=== PATIENT | female | born 1950 | race Caucasian/White ===

== ENCOUNTER 2024-11-03 18:21 | Outpatient (BNV) | payer MEDICARE, SELFPAY | END 2024-11-18 10:42 | PROVIDERS: Admitting Provider Psychiatry & Neurology Psychiatry; Visit Provider Internal Medicine Cardiovascular Disease | DX: I49.3 Ventricular premature depolarization (principal); I51.7 Cardiomegaly | CPT/HCPCS: 93010 ==

== ENCOUNTER 2024-11-03 18:21 | Inpatient (IN) | payer MEDICARE, SELFPAY ==
--- NOTE | ~2024-11-03 | US_ITS ---
EXAMINATION: US KIDNEY BILATERAL HISTORY: hyperkalemia, AZEEM TECHNIQUE: Real-time grayscale ultrasound imaging of the kidneys was performed and images were reviewed. COMPARISON: There are no prior studies for comparison. FINDINGS: Right kidney: The right kidney measures 7.2 x 3.5 x 3.8 cm. The right kidney demonstrates increased echotexture and poor corticomedullary differentiation. There are no masses. There is no hydronephrosis or renal calculi. Left Kidney: The left kidney measures 6.3 x 2.9 x 3.4 cm. The left kidney demonstrates increased echotexture and poor corticomedullary differentiation There are no masses. There is no hydronephrosis or renal calculi. There is a transplant kidney in the left lower quadrant measuring 11.4 x 4.0 x 5.9 cm. Cortical thickness and echotexture are normal. There is no mass, hydronephrosis, or calculi. US/US renal BI IMPRESSION: Atrophic [place] kidneys demonstrating increased echotexture and poor corticomedullary differentiation. Unremarkable appearing transplant kidney in the left lower quadrant. Electronically signed by: Beto Morris MD 11/18/2024 01:29 PM EDT
--- OUTSIDE RECORDS SUMMARY | 2024-11-03 18:31 | XMS_ITS | Clinical Summary ---
Author Organization [facility] Address [address] [place] [address] [place] [id number] Phone Care Team Providers Care Legal Services Manager Name Role Phone Jessica Rowell MD Primary Care Provider + Encounters Date Type Department Care Team Description 09/08/2024 Telephone [facility] [address] [place] [address] Jessica Bose, Establish Care from Last 3 Months Social History Tobacco Use Types Packs/Day Years Used Date Smoking Tobacco: Never Assessed Education Answer Date Recorded Are you interested in more education? Not on romulo e 06/08/2024 Are you concerned about learning? Not on file 06/08/2024 No 06/08/2024 No 06/08/2024 Digital Access Answer Date Recorded No 06/08/2024 No 06/08/2024 Reliable internet access at home? Not on file 06/08/2024 Device with a working camera? Not on file Sex and Gender Information Value Date Recorded Sex Assigned at Female 06/08/2024 12:03 PM EST Gender Identity Female 06/08/2024 12:03 PM EST Sexual Orientation Choose not to disclose 2023 12:03 PM EST Plan of Treatment Health Maintenance Due Date Last Done Comments Adult Td,Tdap Booster 1950 LIPID PANEL 1948 DEPRESSION SCREENING 1960 SMOKING Hx and SMOKELESS TOB ACCO SCREENING 1961 HEPATITIS C SCREENING 1966 PNEUMOCOCCAL VACCINES (50+ y ears) (1 of 1 - PCV) 1998 ZOSTER VACCINES (1 of 2) 1998 OSTEOPOROSIS SCREENING INITI AL (ONE-TIME) 2013 RSV VACCINE (1 - 1-dose 75+ series) 2023 COVID-19 VACCINE ( - 2023-2 5 season) 2024 HEPATITIS A VACCINES Aged Out No long er eligible based on patient's age to complete this topic HIB VACCINES Aged Out No longer eligi ble based on patient's age to complete this topic MENINGOCOCCAL VACCINES (ACWY) Aged Out No longer eligible based on patient's age to complete this topic Medical Devices Not on file Procedures Procedure Name Priority Date/Time Associated Diagnosis Comments NM ELECTROCARDIOGRAM, COMPLETE 08/30/2024 8:21 AM EST from Last 3 Months Results * NM ELECTROCARDIOGRAM, COMPLETE (08/30/2024 8:21 AM EST) 08/30/2024 8:21 AM EST Narrative [employer] [facility] - 08/30/2024 8:21 AM EST ? [facility] ?[address] ? [place] [address] ?Electrocardiograph Report ?Signed ? Patient: Candi Salgado ?? MR# [id number] ? : 1950 ?Acct:[id number] ? Age/Sex: 74 / F ?ADM Date: 08/29/24 ? Loc: ED ? Attending Dr: ? Ordering Physician: Jones Lee MD ?? Date of Service: 08/29/24 ?? Procedure(s): EKG 12 lead ?? Accession Number(s): [id number] ? cc: Jessica Rowell MD; Jones Lee MD~ ? Test Reason : WEAKNESS ?? Blood Pressure : ?? */* ?? mmHG ?? Vent. Rate : ??89 BPM ? Atrial Rate : ??89 BPM ? P-R Int : 174 ms ?QRS Dur : 104 ms ?QT Int : 382 ms ? P-R-T Axes : ??48 -31 ??46 degrees ? QTc Int : 464 ms ? POOR DATA QUALITY, INTERPRETATION MAY BE ADVERSELY AFFECTED ?? NORMAL SINUS RHYTHM ?? POSSIBLE LEFT ATRIAL ENLARGEMENT ?? BORDERLINE ECG ?? ABNORMAL ECG ?? WHEN COMPARED WITH ECG OF 19-SEP-2023 12:10, ?? NO SIGNIFICANT CHANGE WAS FOUND ?? Confirmed by Isiah MARIE SCOTT ([id number]) on 08/30/2024 8:21:25 AM ? Referred By: ?Confirmed By: MATT MARIE M.D. ?? Acquiring Tech: ??DL ? Dictated By: ? Matt Marie MD ? Signed By: ? <Electronically signed by Matt Marie MD in OV> ? 08/30/24 0821 ?? Procedure Note Matt Marie MD - 08/30/2024 [facility] [address] [place] [address] Electrocardiograph Report Signed Patient: Candi Salgado MR# [id number] : 8Acct:[id number] Age/Sex: 74 / F ADMDate: 08/29/24 Loc: ED Attending Dr: Ordering Physician: Jones Lee MD Date of Service: 08/29/24 Procedure(s): EKG 12 lead Accession Number(s): [id number] cc: Jessica Rowell MD; Jones Lee MD~ Test Reason : WEAKNESS Blood Pressure : */* mmHG Vent. Rate : 89 BPM Atrial Rate : 89 BPM P-R Int : 174 ms QRS Dur : 104 ms QT Int : 382 ms P-R-T Axes : 48 -31 46 degrees QTc Int : 464 ms POOR DATA QUALITY, INTERPRETATION MAY BE ADVERSELY AFFECTED NORMAL SINUS RHYTHM POSSIBLE LEFT ATRIAL ENLARGEMENT BORDERLINE ECG ABNORMAL ECG WHEN COMPARED WITH ECG OF 19-SEP-2023 12:10, NO SIGNIFICANT CHANGE WAS FOUND Confirmed by Isiah MARIE, MATT ([id number]) on 08/30/2024 8:21:25 AM Referred By: Confirmed By: MATT MARIE M.D. Acquiring Tech: DL Dictated By: Matt Marie MD Signed By: <Electronically signed by Matt Marie MD in OV> 08/30/24 0821 Jones Lee MD [facility] [employer] [facility] from Last 3 Months Denisetecarly, Candi E Personal/Famil y Self [address] [place] [phone] Hottelet, Candi E Personal/Famil y Self [address] [place] [phone] Hottelet, Candi E Personal/Famil y Self [address] [place] [phone] Hottelet, Candi E Personal/Famil y Self [address] [place] [phone] Hottelet, Candi E Personal/Famil y Self [address] [place] [phone] Hottelet, Candi E Personal/Famil y Self [address] [place] [phone] Care Teams Legal Services Manager Relationship Specialty Start Date End Date Jessica Rowell MD [address] [place] [address] [email or web address] PCP - General Internal Medicine 09/08/24 Additional Source Comments The information contained in this document represents components of the legal health record. It is not the complete legal health record.[facility]
--- OUTSIDE RECORDS SUMMARY | 2024-11-03 18:31 | XMS_ITS | Clinical Summary ---
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 Social History Tobacco Use Types Packs/Day Years Used Date Smoking Tobacco: Never Assessed Comments Unknown Sex and Gender Information Value Date Recorded Sex Assigned at Female 01/06/2024 10:23 AM EDT Legal Sex Female 12:24 AM EDT Gender Identity Female 01/06/2024 10:23 AM EDT Sexual Orientation Straight 01/06/2024 10 :23 AM EDT Plan of Treatment Health Maintenance Due Date Last Done Comments HIV Screening 1950 MMR Vaccines (1 of 1 - Stand aurora series) 1949 DTaP/Tdap/Td Vaccines (1 - Tdap) 1955 Varicella Vaccines (1 of 2 - 13+ 2-dose series) 1961 Hepatitis C Screening 1966 COVID-19 Vaccine ( - 2023-2 5 season) 2024 Influenza Vaccine (Season Ended) 2025 HIB Vaccines Aged Out No longer eligi ble based on patient's age to complete this topic HPV Vaccines Aged Out No longer eligi ble based on patient's age to complete this topic Hepatitis A Vaccines Aged Out No long er eligible based on patient's age to complete this topic Hepatitis B Vaccines Aged Out No long er eligible based on patient's age to complete this topic IPV Vaccines Aged Out No longer eligi ble based on patient's age to complete this topic Meningococcal B Vaccine Aged Out No l onger eligible based on patient's age to complete this topic Meningococcal Vaccine Aged Out No lonnie elkin eligible based on patient's age to complete this topic Rotavirus Vaccines Aged Out No longer eligible based on patient's age to complete this topic Insurance AETNA DENTAL MEDICARE [facility] AETNA DENTAL MEDICARE [facility] Care Teams Race Relations Professor Relationship Specialty Start Date End Date Jessica Rowell [address] [place] [address] PCP - General Internal Medicine 12/06/23 Jessica Rowell [address] [place] [address] PCP - Clinical PCP 02/11/19
--- OUTSIDE RECORDS SUMMARY | 2024-11-03 18:31 | XMS_ITS | Clinical Summary ---
Author Organization [facility] Address [address] [place] [address] Phone Care Team Providers Care Head Chef Name Role Phone Unavailable Unavailable Conditions or Problems No information available. Medications No information available. Medications Administered No information available. Allergies, Adverse Reactions, Alerts No information available. Results No information available. Plan of Care No information available. Procedures No information available. Vital Signs No information available. Immunizations No information available. Advance Directives No information available.
--- OUTSIDE RECORDS SUMMARY | 2024-11-03 18:31 | XMS_ITS | Encounter Summary ---
Author Organization [facility] Address [address] [place] [address] Phone Care Team Providers Care Auto Porter Name Role Phone Jessica Rowell Primary Care Provider [phone] Jessica Rowell Unavailable [phone] Encounter Details Date Type Department Care Team (Latest Contact Info) Description 12/19/2023 Abstract [facility] Conversion ProviderYi MD [address] [place] [address] Social History Tobacco Use Types Packs/Day Years Used Date Smoking Tobacco: Never Assessed Comments Unknown Sex and Gender Information Value Date Recorded Sex Assigned at Female 01/06/2024 10:23 AM EDT Legal Sex Female 12:24 AM EDT Gender Identity Female 01/06/2024 10:23 AM EDT Sexual Orientation Straight 01/06/2024 10 :23 AM EDT documented as of this encounter Plan of Treatment Not on file documented as of this encounter Visit Diagnoses Not on filedocumented in this encounter Care Teams Auto Porter Relationship Specialty Start Date End Date Jessica Rowell [address] [place] [address] PCP - General Internal Medicine 12/06/23 Jessica Rowell [address] [place] [address] PCP - Clinical PCP 02/11/19 documented as of this encounter
[2024-11-03 20:00] VITALS: BP 128/68; PULSE 86; RESP 17; TEMP 36.1; O2SAT 96
[2024-11-03] MEDS: OLANZapine 10 MG TABLET PO (23:00)
[2024-11-03] MEDS: Tacrolimus 1 MG CAPSULE PO (23:00)
[2024-11-03] MEDS: Acetaminophen 325 MG TABLET 975 MG PO (23:00)
[2024-11-03] MEDS: lamoTRIgine 100 MG TABLET 200 MG PO (23:01)
[2024-11-04] MEDS: Levothyroxine Sodium 50 MCG TABLET PO (05:57)
[2024-11-04 06:19] VITALS: BMI 22.9
[2024-11-04 08:22] LABS: Estimated Average Glucose 105 mg/dL; Hemoglobin A1C 127.7477 umol/L; Hemoglobin A1c % 5.3 % (<6.0); Total Hemoglobin (HGBA1C) 3747.1247 umol/L
[2024-11-04 08:24] VITALS: BP 143/66; PULSE 77; RESP 16; TEMP 36.9; O2SAT 98
[2024-11-04] MEDS: Acetaminophen 325 MG TABLET 975 MG PO ×2 (08:26→20:43)
[2024-11-04] MEDS: Tacrolimus 1 MG CAPSULE 2 MG PO (08:26)
[2024-11-04] MEDS: lamoTRIgine 100 MG TABLET 200 MG PO ×2 (08:28→20:43)
[2024-11-04 08:38] LABS: Cholesterol 199 mg/dL (<200); HDL Cholesterol 114 mg/dL (>40); LDL Cholesterol Calculated 67 mg/dL (<100); Triglycerides 91 mg/dL (<150)
[2024-11-04 08:50] LABS: TSH reflex Free T4 0.48 uIU/mL (0.32-4.0)
[2024-11-04 09:02] LABS: Alanine Aminotransferase 24 U/L (0-31); Albumin Level 4.1 g/dL (3.5-5.0); Alkaline Phosphatase 70 U/L (39-117); Anion Gap 16 (12-20); Aspartate Amino Transferase 32 U/L (5-31); Bilirubin Total 0.6 mg/dL (0.0-1.0); Blood Urea Nitrogen 56 mg/dL (9-16); Calcium 10.3 mg/dL (8.4-10.2); Carbon Dioxide 26 mmol/L (22-29); Chloride 101 mmol/L (96-108); Creatinine Clr Calc Pharmacy 17.9; Estimated Glomerular Filt Rate 19; Glucose Random 105 mg/dL (60-115); Potassium 4.5 mmol/L (3.3-5.1); Sodium 138 mmol/L (135-145)
[2024-11-04 09:17] VITALS: BMI 22.9
--- NOTE | 2024-11-04 09:28 | HO.PSYADMNOT ---
HPI Date of Service: 11/04/24 Chief Complaint: Bipolar 1 disorder, with psychotic features Sources of Information: patient interviewed, chart reviewed and crisis/core team assessment reviewed HPI Subjective Notes: [place] Warning Healthcare Proxy: Yes Narrative: Ms. Salgado is a 74 year-old woman with hx of schizoaffective disorder, bipolar type who self presented to [facility] due to a fall. She was awaiting STR recommended by PT when she presented as increasingly more paranoid, calling 911 several times reporting she was being tortured and observed self-dialoguing. Pertinent labs in the ED include cbc without leukocytosis. CMP with no electrolyte abnormalities, BUN elevated 38, Cr 2.16 ( post kidney/liver transplant with baseline Cr 2.6 on tacrolimus), AST 36, ALT 20. She has medical hx of ulcerative colitis, graves disease. She apparently did have acute urinary retention on 11/01/2024. Her tacrolimus level was subtherapeutic at 2.8, range goal between 4-6ng/ml. It is documented that patient has been subtherapeutic for long time and her OP nephrology aware of this. Head CT showed atrophy and microvascular changes. On the unit, pt presents with constricted affect. She is calm, poverty of thought. She reports she is not sure why she is here. When asked about fear of someone attempting to harm her while at the other hospital, pt declines feeling fearful or calling 911. 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 She denies SI/HI. She currently denies hearing voices or seeing things other's can't see. She reports she was under the impression that being here had more to do with physical therapy to help with ambulation and prevent falls. She reports she has been working with psychiatrist, Dr. Damion Lynn for a long time and has a new therapist. She reports taking medications as prescribed. Past Psychiatric History: Inpt: multiple in the past, most recently per records, 2020 in [place], [place] due to suicidal ideation. Other admission at [facility]. OP:Dr. Damion Lynn MD [phone] Past medication trials: lithium (end stage renal disease), lamictal, olanzapine Hx of suicide attempts: when pt was 16, attempted to drown self (per records), pt reports had attempts but can't remember what she did or when. Medical Evaluation Reviewed: Yes [facility] Medical History (Updated 11/05/24 @ 10:23 by Roxanne Whitt NP) Bipolar 1 disorder HTN (hypertension) Hypothyroidism Ulcerative colitis Surgical History (Updated 11/04/24 @ 13:32 by TERRA Licona) S/P kidney transplant S/P liver transplant Family History: pt states my sisters Social History: Pt twice. She had 3 children with second who in 2021. Her son after being hit by truck at the age of 8 in 1995. She has 2 sons, one in [place] and another in [place]. Son in [place] is her HCP and apparently they did not have contact for a decade until about a year ago when she contacted him and appointed him as HCP. 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 Substance History: denies Trauma History: of son Diagnostics Vital Signs (24Hr): Vital Signs - 24 hr 11/03/24 20:00 11/04/24 08:24 Temperature 97 F 98.4 F Pulse Rate 86 77 Respiratory Rate 17 16 Blood Pressure 128/68 143/66 H Pulse Oximetry 96 98 Oxygen Delivery Method Room Air Room Air BMI result Body Mass Index 22.9 Labs 11/04/24 07:40 Labs: Laboratory Results - last 48 hr 11/04/24 07:40 Sodium 138 Potassium 4.5 Chloride 101 Carbon Dioxide 26 Anion Gap 16 BUN 56 H Creatinine 2.50 H Estim Creat Clear Calc 17.9 Estimated GFR 19 Random Glucose 105 Estimat Average Glucose 105 Hemoglobin A1c % 5.3 Calcium 10.3 H Total Bilirubin 0.6 AST 32 H ALT 24 Alkaline Phosphatase 70 Total Protein 8.0 Albumin 4.1 Triglycerides 91 Cholesterol 199 LDL Cholesterol, Calc 67 HDL Cholesterol 114 TSH 0.48 Meds/Allergies Meds Home Medications ?Medication ?Instructions ?Recorded ?Confirmed ?Type Tylenol 1,000 mg PO TID 11/03/24 11/03/24 History albuterol 2.5 mg inhalation QID PRN SOB 11/03/24 11/03/24 History heparin, porcine (PF) 5,000 unit subcut TID 11/03/24 11/03/24 History lamotrigine 200 mg PO BID 11/03/24 11/03/24 History levothyroxine 50 mcg PO DAILY 11/03/24 11/03/24 History olanzapine 2.5 mg PO TID PRN Anxiety 11/03/24 11/03/24 History olanzapine 10 mg PO BEDTIME 11/03/24 11/03/24 History tacrolimus 1 mg PO BEDTIME 11/03/24 11/03/24 History tacrolimus 2 mg PO DAILY 11/03/24 11/03/24 History Allergies Allergies Allergy/AdvReac Type Severity Reaction Status Date / Time aspirin Allergy Unknown Verified 11/03/24 19:49 lithium AdvReac Severe kidney Verified 11/05/24 10:08 disease NSAIDS (Non-Steroidal AdvReac Severe end stage Verified 11/05/24 10:08 Anti-Inflamma renal disease Mental Status Exam Mental Status Exam Narrative: Appearance: thin, pale, sitting in wheelchair, constricted affect, fair hygiene, in NAD Behavior: superficially cooperative Psychomotor: retardation noted, no resting tremors, Speech: mostly clear, some delayed in response but not significant, spontaneous TP: mostly linear, some poverty of thought TC:wanting to fiction writer and publish her book and work on physical therapy Mood: okay Affect: constricted SI: denies HI: denies VH/AH: denies but may be internally preoccupied Delusions: only delusional report during our interview was 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 memory/cog: alert, oriented to month, year, not so much situation. pending MOCA and ACL. Assessment & Plan Assessment & Plan (1) Schizoaffective disorder, bipolar type: Status: Acute Code(s): F25.0 - Schizoaffective disorder, bipolar type Plan Ms. Salgado is a 74 year-old woman with hx of schizoaffective disorder, bipolar type who initially self presented to [facility] due to frequent falls, she was awaiting to step down to [facility], but noted to be more paranoid, calling 911 several times reporting she was being tortured, and observed self dialoguing. On the unit, pt presents as calm, cooperative, poverty of thought. 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 She has significant gait abnormalities including freeze gait, retropulsion, poor coordination. No noted resting tremors, but does present with constricted affect. We discussed risks, benefits and alternative treatment options. Will continue olanzapine, will obtain collateral information from her OP psychiatrist. PT ordered. Pending OT assessments for cognitive/memory. Concern in terms of her ability to care for herself given physical and cognitive impairments. PLAN 1. Admit to S1, Sect 12b, 5 minutes checks 2. continue olanzapine and lamictal for mood 3. obtain collateral information- from OP psychiatrist and son. Also home health aid [phone] 4. Aftercare planning. Patient educated on: diagnosis and medication risk/benefits Informed Consent: does not understand Reason for continued inpatient stay Substantial Risk for: inability to function Statement Statement: I have reviewed the history and physical and performed a pertinent examination on my patient. No changes have occurred unless specified. If the History and Physical was not performed prior to admission, the Hospitalist's service will be consulted for completing the admission physical. Time Spent With Patient Time: Total time managing care of this patient today ____ minutes.
--- NOTE | 2024-11-04 09:34 | P.CONHOSP_ITS ---
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 Pt initially presented to [facility] after mechanical fall at home. Medical workup unremarkable, however became increasingly paranoid during hospital stay, calling 911 from her hospital phone multiple times believing that she has been ?locked up? and was referring to herself in the 3rd person. Pt was also noted to be noncompliant with tacrolimus at home up to 2-3 times per week. Pt was thus placed on a section 12 due to inability care for self, grossly impaired insight/judgment, and paranoid ideation/delusional thinking. Medical consult for admission H&P. ?Pt seen and evaluated on the unit where she appears calm and cooperative, sitting in the wheelchair. 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 Pt overall has no acute medical complaints and states she is feels ?fine?. Pt is noted to have an enlarged fistula in right upper extremity. Reports was placed in 2010 but never used as she underwent kidney transplant instead of dialysis. States she does not like to ?press on it? but denies any significant pain or discomfort. Denies fever, chills, nausea, vomiting, abdominal pain. No chest pain/pressure, palpitations. Denies shortness or breath or difficulty breathing. Labs reviewed, significant for BUN 56 and creatinine 2.50, in line with baseline of 2.0-2.50. No significant electrolyte abnormalities. A1c 5.3. TSH WNL. Lipid panel WNL. Review of Systems 2 Review of Systems: Pt has no acute medical complaints at this time. No [facility] Medical History (Updated 11/04/24 @ 13:34 by TERRA Licona) Bipolar 1 disorder HTN (hypertension) Hypothyroidism Ulcerative colitis Surgical History (Updated 11/04/24 @ 13:32 by TERRA Licona) S/P kidney transplant S/P liver transplant Social History Household Members: None Housing: House Do you presently have visiting nurse or other home services: Yes (has home services once a week) Patient Tobacco Use Status: Former Tobacco user Use of substances other than those prescribed or required for medical reasons: Yes Currently Displaying Signs/Symptoms of Drug Intoxication Withdrawal: No Advance Directives: No Advance Directives Information Provided: No Do you have thoughts of harming others: None Do you have a plan to hurt others: No Plan Recently lost weight without trying: No Patient : No : No Poor oral hygiene: No Meds Allergies Allergy/AdvReac Type Severity Reaction Status Date / Time aspirin Allergy Unknown Verified 11/03/24 19:49 lithium Allergy Unknown Verified 11/03/24 19:49 NSAIDS (Non-Steroidal Allergy Unknown Verified 11/03/24 19:49 Anti-Inflamma Active Medications: Current Medications Acetaminophen (Acetaminophen 325 Mg Tablet) 975 mg PO TID [facility] Last Admin: 11/04/24 08:26 Dose: 975 mg Al Hydroxide/Mg Hydroxide (Magnesium Hydrox/Alum Hydrox 30 Ml Oral.Susp) 30 ml PO Q6H PRN PRN Reason: Heartburn/Nausea Albuterol Sulfate (Albuterol Sulfate (0.083%) 2.5 Mg/3 Ml Vial.Neb) 2.5 mg INHALE QID PRN PRN Reason: Shortness of Breath Lamotrigine (Lamotrigine 100 Mg Tablet) 200 mg PO BID [facility] Last Admin: 11/04/24 08:28 Dose: 200 mg Levothyroxine Sodium (Levothyroxine Sodium 50 Mcg Tablet) 50 mcg PO DAILY@0600 [facility] Last Admin: 11/04/24 05:57 Dose: 50 mcg Magnesium Hydroxide (Milk Of Magnesia 30 Ml Oral.Susp) 30 ml PO DAILY PRN PRN Reason: Constipation Nicotine Polacrilex (Nicotine Polacrilex 2 Mg Gum) 4 mg BUCCAL Q2H PRN PRN Reason: Nicotine Cravings Olanzapine (Olanzapine 2.5 Mg Tablet) 2.5 mg PO TID PRN PRN Reason: agitation Olanzapine (Olanzapine 10 Mg Tablet) 10 mg PO BEDTIME [facility] Last Admin: 11/03/24 23:00 Dose: 10 mg Tacrolimus (Tacrolimus 1 Mg Capsule) 2 mg PO DAILY [facility] Last Admin: 11/04/24 08:26 Dose: 2 mg Tacrolimus (Tacrolimus 1 Mg Capsule) 1 mg PO BEDTIME [facility] Last Admin: 11/03/24 23:00 Dose: 1 mg Trazodone HCl (Trazodone Hcl 25 Mg Halftab) 25 mg PO BEDTIME MRX1 PRN PRN Reason: Insomnia Home Medications ?Medication ?Instructions ?Recorded ?Confirmed ?Last Taken ?Type Tylenol 1,000 mg PO TID 11/03/24 11/03/24 Unknown History albuterol 2.5 mg inhalation QID PRN SOB 11/03/24 11/03/24 Unknown History heparin, porcine (PF) 5,000 unit subcut TID 11/03/24 11/03/24 Unknown History lamotrigine 200 mg PO BID 11/03/24 11/03/24 Unknown History levothyroxine 50 mcg PO DAILY 11/03/24 11/03/24 Unknown History olanzapine 2.5 mg PO TID PRN Anxiety 11/03/24 11/03/24 Unknown History olanzapine 10 mg PO BEDTIME 11/03/24 11/03/24 Unknown History tacrolimus 1 mg PO BEDTIME 11/03/24 11/03/24 Unknown History tacrolimus 2 mg PO DAILY 11/03/24 11/03/24 Unknown History Physical Exam 2 Vital Signs and Narrative: Vital Signs: Last Vital Signs Temp 98.4 F 11/04/24 08:24 Pulse 77 11/04/24 08:24 Resp 16 11/04/24 08:24 BP 143/66 H 11/04/24 08:24 Pulse Ox 98 11/04/24 08:24 O2 Del Method Room Air 11/04/24 08:24 BMI result Body Mass Index 22.9 General: AOx3, no acute distress Resp: CTA bilaterally CVS: S1, S2, RRR, +murmur GI: +BS, NT, no distention Skin: Warm, dry Neuro: Cranial nerves II-XII grossly intact bilaterally. Motor grossly intact bilaterally Extremities: No edema. Right upper extremity with enlarged fistula, as pictured below. 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 Medical consult for admission H&P. Mood disorder Plan as per Psychiatry AV fistula of right upper extremity Pt reports fistula placed in 2010, never used Appears enlarged likely secondary to thrombosis from lack of use Pt asymptomatic: Denies any significant pain or discomfort Contacted vascular surgery who did not think any acute intervention necessary at this time Should follow up outpatient with vascular surgery for elective procedure to remove thrombosis End-stage renal disease Secondary to lithium toxicity S/p kidney transplant in 2010 Creatinine 2.50, in line with baseline of 2.0-2.5 Continue tacrolimus Follow up outpatient with [facility] End-stage liver disease Secondary to primary sclerosing cholangitis S/p liver transplant in 2010 Continue tacrolimus Follow up outpatient with [facility] Asthma Not in acute exacerbation Continue home rescue inhaler Hypothyroidism Continue levothyroxine Thank you for allowing us to participate in the care of this patient. Signing off at this time. Please re-consult if any acute complaints or issues arise.
[2024-11-04] MEDS: OLANZapine 2.5 MG TABLET PO (13:03)
--- NOTE | 2024-11-04 15:40 | PC.ADMIT ---
Pt arrived on the unit at 1855 via ambulance from [facility], 12B. Pt originally presented to the hospital because she had a fall at home. She then had a manic episode while in ED, due to Bipolar 1 d/o, and in addition became agitated and paranoid which was the precipitating factor to qualifying for this psychiatric IPLOC. Pt currently calm and cooperative. Pt with unsteady gait and given a wheelchair for safety. She has a colostomy which she is dependent for care with. Surrounding tissue is warm and dry, no infection noted or reported. Pt with a fistula on right arm from dialysis, pre-kidney transplant. Fistula is very large and hospitalist consult placed for assessment.
[2024-11-04 20:00] VITALS: BP 121/80; PULSE 100; RESP 18; TEMP 36.3; O2SAT 94
[2024-11-04] MEDS: Tacrolimus 1 MG CAPSULE PO (20:42)
[2024-11-04] MEDS: OLANZapine 10 MG TABLET PO (20:43)
[2024-11-04] MEDS: traZODone HCL 25 MG HALFTAB PO (20:44)
[2024-11-05] MEDS: Levothyroxine Sodium 50 MCG TABLET PO (06:10)
[2024-11-05 08:00] VITALS: BP 113/71; PULSE 106; RESP 18; TEMP 36.1; O2SAT 94
[2024-11-05] MEDS: Tacrolimus 1 MG CAPSULE 2 MG PO (09:11)
[2024-11-05] MEDS: Acetaminophen 325 MG TABLET 975 MG PO ×2 (09:12→19:37)
[2024-11-05] MEDS: lamoTRIgine 100 MG TABLET 200 MG PO ×2 (09:13→19:38)
--- NOTE | 2024-11-05 17:24 | P.PNPSI_ITS ---
Subjective Subjective Date of Service: 11/05/24 Reason For Visit: Bipolar 1 disorder, with psychotic features Subjective Notes: Conditional Voluntary Interim History: Pt slept through the night. She does have constricted affect, eyes slightly protruding, do not notice decreased blinking. There is a slight action tremors no overt cogwheel on arms. She reports doing well. Poverty of thought. She was not able to complete MOCA nor ACL, as she reported too difficult. No overt delusional content noted. Review of Systems Review of Systems Pt has no acute medical complaints at this time. 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 memory/cog: alert, oriented to month, year, not so much situation. pending MOCA and ACL. Diagnostics Vital Signs (24Hr): Vital Signs - 24 hr 11/04/24 20:00 11/05/24 08:00 Temperature 97.4 F 97 F Pulse Rate 100 106 H Respiratory Rate 18 18 Blood Pressure 121/80 113/71 Pulse Oximetry 94 94 Oxygen Delivery Method Room Air Room Air BMI result Body Mass Index 22.9 Labs 11/04/24 07:40 Labs: Laboratory Results - last 48 hr 11/04/24 07:40 Sodium 138 Potassium 4.5 Chloride 101 Carbon Dioxide 26 Anion Gap 16 BUN 56 H Creatinine 2.50 H Estim Creat Clear Calc 17.9 Estimated GFR 19 Random Glucose 105 Estimat Average Glucose 105 Hemoglobin A1c % 5.3 Calcium 10.3 H Total Bilirubin 0.6 AST 32 H ALT 24 Alkaline Phosphatase 70 Total Protein 8.0 Albumin 4.1 Triglycerides 91 Cholesterol 199 LDL Cholesterol, Calc 67 HDL Cholesterol 114 TSH 0.48 Medications Medications Current Medications Acetaminophen (Acetaminophen 325 Mg Tablet) 975 mg PO TID [facility] Last Admin: 11/05/24 15:37 Dose: Not Given Al Hydroxide/Mg Hydroxide (Magnesium Hydrox/Alum Hydrox 30 Ml Oral.Susp) 30 ml PO Q6H PRN PRN Reason: Heartburn/Nausea Albuterol Sulfate (Albuterol Sulfate (0.083%) 2.5 Mg/3 Ml Vial.Neb) 2.5 mg INHALE QID PRN PRN Reason: Shortness of Breath Lamotrigine (Lamotrigine 100 Mg Tablet) 200 mg PO BID [facility] Last Admin: 11/05/24 09:13 Dose: 200 mg Levothyroxine Sodium (Levothyroxine Sodium 50 Mcg Tablet) 50 mcg PO DAILY@0600 [facility] Last Admin: 11/05/24 06:10 Dose: 50 mcg Magnesium Hydroxide (Milk Of Magnesia 30 Ml Oral.Susp) 30 ml PO DAILY PRN PRN Reason: Constipation Nicotine Polacrilex (Nicotine Polacrilex 2 Mg Gum) 4 mg BUCCAL Q2H PRN PRN Reason: Nicotine Cravings Olanzapine (Olanzapine 2.5 Mg Tablet) 2.5 mg PO TID PRN PRN Reason: agitation Last Admin: 11/04/24 13:03 Dose: 2.5 mg Olanzapine (Olanzapine 10 Mg Tablet) 10 mg PO BEDTIME [facility] Last Admin: 11/04/24 20:43 Dose: 10 mg Tacrolimus (Tacrolimus 1 Mg Capsule) 2 mg PO DAILY [facility] Last Admin: 11/05/24 09:11 Dose: 2 mg Tacrolimus (Tacrolimus 1 Mg Capsule) 1 mg PO BEDTIME [facility] Last Admin: 11/04/24 20:42 Dose: 1 mg Trazodone HCl (Trazodone Hcl 25 Mg Halftab) 25 mg PO BEDTIME MRX1 PRN PRN Reason: Insomnia Last Admin: 11/04/24 20:44 Dose: 25 mg Allergies Allergies Allergy/AdvReac Type Severity Reaction Status Date / Time aspirin Allergy Unknown Verified 11/03/24 19:49 lithium AdvReac Severe kidney Verified 11/05/24 10:08 disease NSAIDS (Non-Steroidal AdvReac 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 Salgado is a 74 year-old woman with hx of schizoaffective disorder, bipolar type who initially self presented to [facility] due to frequent falls, she was awaiting to step down to [facility], but noted to be more paranoid, calling 911 several times reporting she was being tortured, and observed self dialoguing. On the unit, pt presents as calm, cooperative, poverty of thought. 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 She has significant gait abnormalities including freeze gait, retropulsion, poor coordination. No noted resting tremors, but does present with constricted affect. We discussed risks, benefits and alternative treatment options. Will continue olanzapine, will obtain collateral information from her OP psychiatrist. PT ordered. Pending OT assessments for cognitive/memory. Concern in terms of her ability to care for herself given physical and cognitive impairments. PLAN 11/05 continue tx. Reason for continued inpatient stay Substantial Risk for: inability to function Time Spent With Patient Time: Total time managing care of this patient today ____ minutes.
[2024-11-05] MEDS: Tacrolimus 1 MG CAPSULE PO (19:38)
[2024-11-05] MEDS: OLANZapine 10 MG TABLET PO (19:39)
[2024-11-05 19:41] VITALS: BP 131/60; PULSE 100; RESP 16; TEMP 37.2; O2SAT 95
[2024-11-06] MEDS: Levothyroxine Sodium 50 MCG TABLET PO (05:16)
--- NOTE | 2024-11-06 06:02 | PC.NURSE ---
Colostomy bag displaced, new bag installed, stoma red/pink, moist, shiny, and asymptomatic of infection. Patient tolerated the procedure well.
[2024-11-06 08:00] VITALS: BP 138/60; PULSE 89; RESP 18; TEMP 36.4; O2SAT 95
[2024-11-06] MEDS: Acetaminophen 325 MG TABLET 975 MG PO ×3 (08:26→19:53)
[2024-11-06] MEDS: lamoTRIgine 100 MG TABLET 200 MG PO ×2 (08:26→19:52)
[2024-11-06] MEDS: Tacrolimus 1 MG CAPSULE 2 MG PO (08:26)
--- NOTE | 2024-11-06 18:29 | HO.PSYCHPN ---
Subjective Subjective Date of Service: 11/06/24 Reason For Visit: Bipolar 1 disorder, with psychotic features Subjective Notes: Conditional Voluntary Interim History: Pt slept through the night. She denies any concerns, no overt delusional content noted or reported. She denies SI/HI. She continues to be wheelchair bound and assistance to transfer with one assist. She is taking medications as prescribed. No behavioral concerns. Review of Systems Review of Systems Pt has no acute medical complaints at this time. 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 memory/cog: alert, oriented to month, year, not so much situation. pending MOCA and ACL. Diagnostics Vital Signs (24Hr): Vital Signs - 24 hr 11/05/24 19:41 11/06/24 08:00 Temperature 99 F 97.5 F Pulse Rate 100 89 Respiratory Rate 16 18 Blood Pressure 131/60 138/60 Pulse Oximetry 95 95 Oxygen Delivery Method Room Air Room Air BMI result Body Mass Index 22.9 Labs 11/04/24 07:40 Medications Medications Current Medications Acetaminophen (Acetaminophen 325 Mg Tablet) 975 mg PO TID [facility] Last Admin: 11/06/24 14:23 Dose: 975 mg Al Hydroxide/Mg Hydroxide (Magnesium Hydrox/Alum Hydrox 30 Ml Oral.Susp) 30 ml PO Q6H PRN PRN Reason: Heartburn/Nausea Albuterol Sulfate (Albuterol Sulfate (0.083%) 2.5 Mg/3 Ml Vial.Neb) 2.5 mg INHALE QID PRN PRN Reason: Shortness of Breath Lamotrigine (Lamotrigine 100 Mg Tablet) 200 mg PO BID [facility] Last Admin: 11/06/24 08:26 Dose: 200 mg Levothyroxine Sodium (Levothyroxine Sodium 50 Mcg Tablet) 50 mcg PO DAILY@0600 [facility] Last Admin: 11/06/24 05:16 Dose: 50 mcg Magnesium Hydroxide (Milk Of Magnesia 30 Ml Oral.Susp) 30 ml PO DAILY PRN PRN Reason: Constipation Nicotine Polacrilex (Nicotine Polacrilex 2 Mg Gum) 4 mg BUCCAL Q2H PRN PRN Reason: Nicotine Cravings Olanzapine (Olanzapine 2.5 Mg Tablet) 2.5 mg PO TID PRN PRN Reason: agitation Last Admin: 11/04/24 13:03 Dose: 2.5 mg Olanzapine (Olanzapine 10 Mg Tablet) 10 mg PO BEDTIME [facility] Last Admin: 11/05/24 19:39 Dose: 10 mg Tacrolimus (Tacrolimus 1 Mg Capsule) 2 mg PO DAILY [facility] Last Admin: 11/06/24 08:26 Dose: 2 mg Tacrolimus (Tacrolimus 1 Mg Capsule) 1 mg PO BEDTIME [facility] Last Admin: 11/05/24 19:38 Dose: 1 mg Trazodone HCl (Trazodone Hcl 25 Mg Halftab) 25 mg PO BEDTIME MRX1 PRN PRN Reason: Insomnia Last Admin: 11/04/24 20:44 Dose: 25 mg Allergies Allergies Allergy/AdvReac Type Severity Reaction Status Date / Time aspirin Allergy Unknown Verified 11/03/24 19:49 lithium AdvReac Severe kidney Verified 11/05/24 10:08 disease NSAIDS (Non-Steroidal AdvReac 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 Salgado is a 74 year-old woman with hx of schizoaffective disorder, bipolar type who initially self presented to [facility] due to frequent falls, she was awaiting to step down to [facility], but noted to be more paranoid, calling 911 several times reporting she was being tortured, and observed self dialoguing. On the unit, pt presents as calm, cooperative, poverty of thought. 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 She has significant gait abnormalities including freeze gait, retropulsion, poor coordination. No noted resting tremors, but does present with constricted affect. We discussed risks, benefits and alternative treatment options. Will continue olanzapine, will obtain collateral information from her OP psychiatrist. PT ordered. Pending OT assessments for cognitive/memory. Concern in terms of her ability to care for herself given physical and cognitive impairments. PLAN 11/06 continue tx. Reason for continued inpatient stay Substantial Risk for: inability to function Time Spent With Patient Time: Total time managing care of this patient today ____ minutes.
[2024-11-06 19:50] VITALS: BP 112/55; PULSE 88; RESP 16; TEMP 36.2; O2SAT 93
[2024-11-06] MEDS: OLANZapine 10 MG TABLET PO (19:52)
[2024-11-06] MEDS: Tacrolimus 1 MG CAPSULE PO (19:52)
[2024-11-07] MEDS: Levothyroxine Sodium 50 MCG TABLET PO (05:09)
[2024-11-07 08:00] VITALS: BP 116/59; PULSE 93; RESP 16; TEMP 36.5; O2SAT 96
[2024-11-07] MEDS: Tacrolimus 1 MG CAPSULE 2 MG PO (09:02)
[2024-11-07] MEDS: Acetaminophen 325 MG TABLET 975 MG PO ×3 (09:03→20:28)
[2024-11-07] MEDS: lamoTRIgine 100 MG TABLET 200 MG PO ×2 (09:03→20:29)
[2024-11-07 19:57] VITALS: BP 138/65; PULSE 79; RESP 14; TEMP 36.9; O2SAT 96
[2024-11-07] MEDS: Tacrolimus 1 MG CAPSULE PO (20:28)
[2024-11-07] MEDS: traZODone HCL 25 MG HALFTAB PO (20:28)
[2024-11-07] MEDS: OLANZapine 10 MG TABLET PO (20:29)
--- NOTE | 2024-11-07 22:26 | HO.PSYCHPN ---
Subjective Subjective Date of Service: 11/07/24 Reason For Visit: Bipolar 1 disorder, with psychotic features Subjective Notes: Conditional Voluntary Healthcare Proxy: Yes Interim History: Pt slept through the night. She denies any concerns, no overt delusional content noted or reported. She denies SI/HI. She continues to be wheelchair bound and assistance to transfer with one assist. She is taking medications as prescribed. No behavioral concerns. poverty of thought Review of Systems Review of Systems Pt has no acute medical complaints at this time. 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 memory/cog: alert, oriented to month, year, not so much situation. pending MOCA and ACL. Diagnostics Vital Signs (24Hr): Vital Signs - 24 hr 11/07/24 08:00 11/07/24 19:57 Temperature 97.7 F 98.4 F Pulse Rate 93 79 Respiratory Rate 16 14 Blood Pressure 116/59 L 138/65 Pulse Oximetry 96 96 Oxygen Delivery Method Room Air Room Air BMI result Body Mass Index 22.9 Labs 11/04/24 07:40 Medications Medications Current Medications Acetaminophen (Acetaminophen 325 Mg Tablet) 975 mg PO TID [facility] Last Admin: 11/07/24 20:28 Dose: 975 mg Al Hydroxide/Mg Hydroxide (Magnesium Hydrox/Alum Hydrox 30 Ml Oral.Susp) 30 ml PO Q6H PRN PRN Reason: Heartburn/Nausea Albuterol Sulfate (Albuterol Sulfate (0.083%) 2.5 Mg/3 Ml Vial.Neb) 2.5 mg INHALE QID PRN PRN Reason: Shortness of Breath Lamotrigine (Lamotrigine 100 Mg Tablet) 200 mg PO BID [facility] Last Admin: 11/07/24 20:29 Dose: 200 mg Levothyroxine Sodium (Levothyroxine Sodium 50 Mcg Tablet) 50 mcg PO DAILY@0600 [facility] Last Admin: 11/07/24 05:09 Dose: 50 mcg Magnesium Hydroxide (Milk Of Magnesia 30 Ml Oral.Susp) 30 ml PO DAILY PRN PRN Reason: Constipation Nicotine Polacrilex (Nicotine Polacrilex 2 Mg Gum) 4 mg BUCCAL Q2H PRN PRN Reason: Nicotine Cravings Olanzapine (Olanzapine 2.5 Mg Tablet) 2.5 mg PO TID PRN PRN Reason: agitation Last Admin: 11/04/24 13:03 Dose: 2.5 mg Olanzapine (Olanzapine 10 Mg Tablet) 10 mg PO BEDTIME [facility] Last Admin: 11/07/24 20:29 Dose: 10 mg Tacrolimus (Tacrolimus 1 Mg Capsule) 2 mg PO DAILY [facility] Last Admin: 11/07/24 09:02 Dose: 2 mg Tacrolimus (Tacrolimus 1 Mg Capsule) 1 mg PO BEDTIME [facility] Last Admin: 11/07/24 20:28 Dose: 1 mg Trazodone HCl (Trazodone Hcl 25 Mg Halftab) 25 mg PO BEDTIME MRX1 PRN PRN Reason: Insomnia Last Admin: 11/07/24 20:28 Dose: 25 mg Allergies Allergies Allergy/AdvReac Type Severity Reaction Status Date / Time aspirin Allergy Unknown Verified 11/03/24 19:49 lithium AdvReac Severe kidney Verified 11/05/24 10:08 disease NSAIDS (Non-Steroidal AdvReac 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 Salgado is a 74 year-old woman with hx of schizoaffective disorder, bipolar type who initially self presented to [facility] due to frequent falls, she was awaiting to step down to [facility], but noted to be more paranoid, calling 911 several times reporting she was being tortured, and observed self dialoguing. On the unit, pt presents as calm, cooperative, poverty of thought. 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 She has significant gait abnormalities including freeze gait, retropulsion, poor coordination. No noted resting tremors, but does present with constricted affect. We discussed risks, benefits and alternative treatment options. Will continue olanzapine, will obtain collateral information from her OP psychiatrist. PT ordered. Pending OT assessments for cognitive/memory. Concern in terms of her ability to care for herself given physical and cognitive impairments. PLAN 11/07 continue tx. Reason for continued inpatient stay Substantial Risk for: inability to function Time Spent With Patient Time: Total time managing care of this patient today ____ minutes.
[2024-11-08] MEDS: Levothyroxine Sodium 50 MCG TABLET PO (05:53)
[2024-11-08 08:00] VITALS: BP 147/72; PULSE 86; RESP 14; TEMP 36.2; O2SAT 97
[2024-11-08] MEDS: Acetaminophen 325 MG TABLET 975 MG PO ×3 (09:12→20:39)
[2024-11-08] MEDS: lamoTRIgine 100 MG TABLET 200 MG PO ×2 (09:12→20:39)
[2024-11-08] MEDS: Tacrolimus 1 MG CAPSULE 2 MG PO (09:13)
[2024-11-08 20:00] VITALS: BP 120/59; PULSE 79; TEMP 36.1; O2SAT 96
--- NOTE | 2024-11-08 20:17 | P.PNPSI_ITS ---
Subjective Subjective Date of Service: 11/08/24 Reason For Visit: Bipolar 1 disorder, with psychotic features Interim History: Pt slept through the night. She denies any concerns, no overt delusional content noted or reported. She denies SI/HI. She continues to be wheelchair bound and assistance to transfer with one assist. She is taking medications as prescribed. No behavioral concerns. poverty of thought Review of Systems Review of Systems Pt has no acute medical complaints at this time. 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 memory/cog: alert, oriented to month, year, not so much situation. pending MOCA and ACL. Diagnostics Vital Signs (24Hr): Vital Signs - 24 hr 11/08/24 08:00 Temperature 97.1 F Pulse Rate 86 Respiratory Rate 14 Blood Pressure 147/72 H Pulse Oximetry 97 Oxygen Delivery Method Room Air BMI result Body Mass Index 22.9 Labs 11/04/24 07:40 Medications Medications Current Medications Acetaminophen (Acetaminophen 325 Mg Tablet) 975 mg PO TID [facility] Last Admin: 11/08/24 15:58 Dose: 975 mg Al Hydroxide/Mg Hydroxide (Magnesium Hydrox/Alum Hydrox 30 Ml Oral.Susp) 30 ml PO Q6H PRN PRN Reason: Heartburn/Nausea Albuterol Sulfate (Albuterol Sulfate (0.083%) 2.5 Mg/3 Ml Vial.Neb) 2.5 mg INHALE QID PRN PRN Reason: Shortness of Breath Lamotrigine (Lamotrigine 100 Mg Tablet) 200 mg PO BID [facility] Last Admin: 11/08/24 09:12 Dose: 200 mg Levothyroxine Sodium (Levothyroxine Sodium 50 Mcg Tablet) 50 mcg PO DAILY@0600 [facility] Last Admin: 11/08/24 05:53 Dose: 50 mcg Magnesium Hydroxide (Milk Of Magnesia 30 Ml Oral.Susp) 30 ml PO DAILY PRN PRN Reason: Constipation Nicotine Polacrilex (Nicotine Polacrilex 2 Mg Gum) 4 mg BUCCAL Q2H PRN PRN Reason: Nicotine Cravings Olanzapine (Olanzapine 2.5 Mg Tablet) 2.5 mg PO TID PRN PRN Reason: agitation Last Admin: 11/04/24 13:03 Dose: 2.5 mg Olanzapine (Olanzapine 10 Mg Tablet) 10 mg PO BEDTIME [facility] Last Admin: 11/07/24 20:29 Dose: 10 mg Tacrolimus (Tacrolimus 1 Mg Capsule) 2 mg PO DAILY [facility] Last Admin: 11/08/24 09:13 Dose: 2 mg Tacrolimus (Tacrolimus 1 Mg Capsule) 1 mg PO BEDTIME [facility] Last Admin: 11/07/24 20:28 Dose: 1 mg Trazodone HCl (Trazodone Hcl 25 Mg Halftab) 25 mg PO BEDTIME MRX1 PRN PRN Reason: Insomnia Last Admin: 11/07/24 20:28 Dose: 25 mg Allergies Allergies Allergy/AdvReac Type Severity Reaction Status Date / Time aspirin Allergy Unknown Verified 11/03/24 19:49 lithium AdvReac Severe kidney Verified 11/05/24 10:08 disease NSAIDS (Non-Steroidal AdvReac 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 Salgado is a 74 year-old woman with hx of schizoaffective disorder, bipolar type who initially self presented to [facility] due to frequent falls, she was awaiting to step down to [facility], but noted to be more paranoid, calling 911 several times reporting she was being tortured, and observed self dialoguing. On the unit, pt presents as calm, cooperative, poverty of thought. 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 She has significant gait abnormalities including freeze gait, retropulsion, poor coordination. No noted resting tremors, but does present with constricted affect. We discussed risks, benefits and alternative treatment options. Will continue olanzapine, will obtain collateral information from her OP psychiatrist. PT ordered. Pending OT assessments for cognitive/memory. Concern in terms of her ability to care for herself given physical and cognitive impairments. PLAN 11/05 continue tx. 11/06 continue tx. 11/07 continue tx. 11/08 continue tx. Reason for continued inpatient stay Substantial Risk for: inability to function Time Spent With Patient Time: Total time managing care of this patient today ____ minutes.
[2024-11-08] MEDS: traZODone HCL 25 MG HALFTAB PO (20:39)
[2024-11-08] MEDS: OLANZapine 10 MG TABLET PO (20:39)
[2024-11-08] MEDS: Tacrolimus 1 MG CAPSULE PO (20:39)
[2024-11-09] MEDS: Levothyroxine Sodium 50 MCG TABLET PO (06:16)
[2024-11-09 08:00] VITALS: BP 134/63; PULSE 76; RESP 15; TEMP 35.8; O2SAT 90
[2024-11-09] MEDS: Acetaminophen 325 MG TABLET 975 MG PO ×3 (09:11→20:09)
[2024-11-09] MEDS: lamoTRIgine 100 MG TABLET 200 MG PO ×2 (09:11→20:10)
[2024-11-09] MEDS: Tacrolimus 1 MG CAPSULE 2 MG PO (09:12)
--- NOTE | 2024-11-09 11:31 | P.PNPSI_ITS ---
Subjective Subjective Date of Service: 11/09/24 Reason For Visit: Bipolar 1 disorder, with psychotic features Subjective Notes: Conditional Voluntary Interim History: Pt slept through the night. She denies any concerns, no overt delusional content noted or reported. She denies SI/HI. She is working with PT, reports weakness, ordered consult to neurology, ?parkinsonism She is taking medications as prescribed. No behavioral concerns. poverty of thought Review of Systems Review of Systems Pt has no acute medical complaints at this time. 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 memory/cog: alert, oriented to month, year, not so much situation. pending MOCA and ACL. Diagnostics Vital Signs (24Hr): Vital Signs - 24 hr 11/08/24 20:00 11/09/24 08:00 Temperature 97 F 96.4 F L Pulse Rate 79 76 Respiratory Rate 15 Blood Pressure 120/59 L 134/63 Pulse Oximetry 96 90 L Oxygen Delivery Method Room Air Room Air BMI result Body Mass Index 22.9 Labs 11/04/24 07:40 Medications Medications Current Medications Acetaminophen (Acetaminophen 325 Mg Tablet) 975 mg PO TID [facility] Last Admin: 11/09/24 09:11 Dose: 975 mg Al Hydroxide/Mg Hydroxide (Magnesium Hydrox/Alum Hydrox 30 Ml Oral.Susp) 30 ml PO Q6H PRN PRN Reason: Heartburn/Nausea Albuterol Sulfate (Albuterol Sulfate (0.083%) 2.5 Mg/3 Ml Vial.Neb) 2.5 mg INHALE QID PRN PRN Reason: Shortness of Breath Lamotrigine (Lamotrigine 100 Mg Tablet) 200 mg PO BID [facility] Last Admin: 11/09/24 09:11 Dose: 200 mg Levothyroxine Sodium (Levothyroxine Sodium 50 Mcg Tablet) 50 mcg PO DAILY@0600 [facility] Last Admin: 11/09/24 06:16 Dose: 50 mcg Magnesium Hydroxide (Milk Of Magnesia 30 Ml Oral.Susp) 30 ml PO DAILY PRN PRN Reason: Constipation Nicotine Polacrilex (Nicotine Polacrilex 2 Mg Gum) 4 mg BUCCAL Q2H PRN PRN Reason: Nicotine Cravings Olanzapine (Olanzapine 2.5 Mg Tablet) 2.5 mg PO TID PRN PRN Reason: agitation Last Admin: 11/04/24 13:03 Dose: 2.5 mg Olanzapine (Olanzapine 10 Mg Tablet) 10 mg PO BEDTIME [facility] Last Admin: 11/08/24 20:39 Dose: 10 mg Tacrolimus (Tacrolimus 1 Mg Capsule) 2 mg PO DAILY [facility] Last Admin: 11/09/24 09:12 Dose: 2 mg Tacrolimus (Tacrolimus 1 Mg Capsule) 1 mg PO BEDTIME [facility] Last Admin: 11/08/24 20:39 Dose: 1 mg Trazodone HCl (Trazodone Hcl 25 Mg Halftab) 25 mg PO BEDTIME MRX1 PRN PRN Reason: Insomnia Last Admin: 11/08/24 20:39 Dose: 25 mg Allergies Allergies Allergy/AdvReac Type Severity Reaction Status Date / Time aspirin Allergy Unknown Verified 11/03/24 19:49 lithium AdvReac Severe kidney Verified 11/05/24 10:08 disease NSAIDS (Non-Steroidal AdvReac 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 Salgado is a 74 year-old woman with hx of schizoaffective disorder, bipolar type who initially self presented to [facility] due to frequent falls, she was awaiting to step down to [facility], but noted to be more paranoid, calling 911 several times reporting she was being tortured, and observed self dialoguing. On the unit, pt presents as calm, cooperative, poverty of thought. 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 She has significant gait abnormalities including freeze gait, retropulsion, poor coordination. No noted resting tremors, but does present with constricted affect. We discussed risks, benefits and alternative treatment options. Will continue olanzapine, will obtain collateral information from her OP psychiatrist. PT ordered. Pending OT assessments for cognitive/memory. Concern in terms of her ability to care for herself given physical and cognitive impairments. PLAN 11/05 continue tx. 11/06 continue tx. 11/07 continue tx. 11/08 continue tx. 11/09 continue tx. Reason for continued inpatient stay Substantial Risk for: inability to function Time Spent With Patient Time: Total time managing care of this patient today ____ minutes.
[2024-11-09 20:00] VITALS: BP 115/64; PULSE 81; RESP 16; TEMP 36.2; O2SAT 96
[2024-11-09] MEDS: OLANZapine 10 MG TABLET PO (20:10)
[2024-11-09] MEDS: traZODone HCL 25 MG HALFTAB PO (20:11)
[2024-11-09] MEDS: Tacrolimus 1 MG CAPSULE PO (20:11)
[2024-11-10] MEDS: Levothyroxine Sodium 50 MCG TABLET PO (05:44)
[2024-11-10 07:56] VITALS: BP 133/62; PULSE 80; RESP 18; TEMP 36.4; O2SAT 95
[2024-11-10] MEDS: Tacrolimus 1 MG CAPSULE 2 MG PO (08:42)
[2024-11-10] MEDS: lamoTRIgine 100 MG TABLET 200 MG PO ×2 (08:42→20:28)
[2024-11-10] MEDS: Acetaminophen 325 MG TABLET 975 MG PO ×2 (08:43→20:26)
[2024-11-10 20:00] VITALS: BP 136/63; PULSE 83; RESP 18; TEMP 36.4; O2SAT 94
[2024-11-10] MEDS: traZODone HCL 25 MG HALFTAB PO (20:28)
[2024-11-10] MEDS: OLANZapine 10 MG TABLET PO (20:28)
[2024-11-10] MEDS: Tacrolimus 1 MG CAPSULE PO (20:30)
--- NOTE | 2024-11-10 21:12 | HO.PSYCHPN ---
Subjective Subjective Date of Service: 11/10/24 Reason For Visit: Bipolar 1 disorder, with psychotic features Subjective Notes: Conditional Voluntary Interim History: Pt slept through the night. She denies any concerns, no overt delusional content noted or reported. She denies SI/HI. No overt delusional content noted or reported. We had family meeting with her son who is HCP, discuss plan to refer to [facility], as recommended by PT. Awaiting neuro consult for ?movement disorder, gait abnormalities. She is taking medications as prescribed. No behavioral concerns. poverty of thought Review of Systems Review of Systems Pt has no acute medical complaints at this time. 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 memory/cog: alert, oriented to month, year, not so much situation. pending MOCA and ACL. Diagnostics Vital Signs (24Hr): Vital Signs - 24 hr 11/10/24 07:56 11/10/24 20:00 Temperature 97.5 F 97.5 F Pulse Rate 80 83 Respiratory Rate 18 18 Blood Pressure 133/62 136/63 Pulse Oximetry 95 94 Oxygen Delivery Method Room Air Room Air BMI result Body Mass Index 22.9 Labs 11/04/24 07:40 Medications Medications Current Medications Acetaminophen (Acetaminophen 325 Mg Tablet) 975 mg PO TID [facility] Last Admin: 11/10/24 20:26 Dose: 975 mg Al Hydroxide/Mg Hydroxide (Magnesium Hydrox/Alum Hydrox 30 Ml Oral.Susp) 30 ml PO Q6H PRN PRN Reason: Heartburn/Nausea Albuterol Sulfate (Albuterol Sulfate (0.083%) 2.5 Mg/3 Ml Vial.Neb) 2.5 mg INHALE QID PRN PRN Reason: Shortness of Breath Lamotrigine (Lamotrigine 100 Mg Tablet) 200 mg PO BID [facility] Last Admin: 11/10/24 20:28 Dose: 200 mg Levothyroxine Sodium (Levothyroxine Sodium 50 Mcg Tablet) 50 mcg PO DAILY@0600 [facility] Last Admin: 11/10/24 05:44 Dose: 50 mcg Magnesium Hydroxide (Milk Of Magnesia 30 Ml Oral.Susp) 30 ml PO DAILY PRN PRN Reason: Constipation Nicotine Polacrilex (Nicotine Polacrilex 2 Mg Gum) 4 mg BUCCAL Q2H PRN PRN Reason: Nicotine Cravings Olanzapine (Olanzapine 2.5 Mg Tablet) 2.5 mg PO TID PRN PRN Reason: agitation Last Admin: 11/04/24 13:03 Dose: 2.5 mg Olanzapine (Olanzapine 10 Mg Tablet) 10 mg PO BEDTIME [facility] Last Admin: 11/10/24 20:28 Dose: 10 mg Tacrolimus (Tacrolimus 1 Mg Capsule) 2 mg PO DAILY [facility] Last Admin: 11/10/24 08:42 Dose: 2 mg Tacrolimus (Tacrolimus 1 Mg Capsule) 1 mg PO BEDTIME [facility] Last Admin: 11/10/24 20:30 Dose: 1 mg Trazodone HCl (Trazodone Hcl 25 Mg Halftab) 25 mg PO BEDTIME MRX1 PRN PRN Reason: Insomnia Last Admin: 11/10/24 20:28 Dose: 25 mg Allergies Allergies Allergy/AdvReac Type Severity Reaction Status Date / Time aspirin Allergy Unknown Verified 11/03/24 19:49 lithium AdvReac Severe kidney Verified 11/05/24 10:08 disease NSAIDS (Non-Steroidal AdvReac 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 Salgado is a 74 year-old woman with hx of schizoaffective disorder, bipolar type who initially self presented to [facility] due to frequent falls, she was awaiting to step down to [facility], but noted to be more paranoid, calling 911 several times reporting she was being tortured, and observed self dialoguing. On the unit, pt presents as calm, cooperative, poverty of thought. 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 She has significant gait abnormalities including freeze gait, retropulsion, poor coordination. No noted resting tremors, but does present with constricted affect. We discussed risks, benefits and alternative treatment options. Will continue olanzapine, will obtain collateral information from her OP psychiatrist. PT ordered. Pending OT assessments for cognitive/memory. Concern in terms of her ability to care for herself given physical and cognitive impairments. PLAN 11/05 continue tx. 11/06 continue tx. 11/07 continue tx. 11/08 continue tx. 11/09 continue tx. 11/10 continue tx. Reason for continued inpatient stay Substantial Risk for: inability to function Time Spent With Patient Time: Total time managing care of this patient today ____ minutes.
[2024-11-11] MEDS: traZODone HCL 25 MG HALFTAB PO (00:34)
[2024-11-11] MEDS: Levothyroxine Sodium 50 MCG TABLET PO (05:56)
[2024-11-11 08:00] VITALS: BP 136/64; PULSE 72; RESP 16; TEMP 36; O2SAT 97
--- NOTE | 2024-11-11 08:29 | HO.PSYCHPN ---
Subjective Subjective Date of Service: 11/11/24 Reason For Visit: Bipolar 1 disorder, with psychotic features Subjective Notes: Conditional Voluntary Interim History: Pt slept through the night. She denies any concerns, no overt delusional content noted or reported. She denies SI/HI. No overt delusional content noted or reported. Awaiting neuro consult for ?movement disorder, gait abnormalities. She is taking medications as prescribed. No behavioral concerns. poverty of thought Review of Systems Review of Systems Pt has no acute medical complaints at this time. 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 memory/cog: alert, oriented to month, year, not so much situation. pending MOCA and ACL. Diagnostics Vital Signs (24Hr): Vital Signs - 24 hr 11/10/24 20:00 Temperature 97.5 F Pulse Rate 83 Respiratory Rate 18 Blood Pressure 136/63 Pulse Oximetry 94 Oxygen Delivery Method Room Air BMI result Body Mass Index 22.9 Labs 11/04/24 07:40 Medications Medications Current Medications Acetaminophen (Acetaminophen 325 Mg Tablet) 975 mg PO TID [facility] Last Admin: 11/10/24 20:26 Dose: 975 mg Al Hydroxide/Mg Hydroxide (Magnesium Hydrox/Alum Hydrox 30 Ml Oral.Susp) 30 ml PO Q6H PRN PRN Reason: Heartburn/Nausea Albuterol Sulfate (Albuterol Sulfate (0.083%) 2.5 Mg/3 Ml Vial.Neb) 2.5 mg INHALE QID PRN PRN Reason: Shortness of Breath Lamotrigine (Lamotrigine 100 Mg Tablet) 200 mg PO BID [facility] Last Admin: 11/10/24 20:28 Dose: 200 mg Levothyroxine Sodium (Levothyroxine Sodium 50 Mcg Tablet) 50 mcg PO DAILY@0600 [facility] Last Admin: 11/11/24 05:56 Dose: 50 mcg Magnesium Hydroxide (Milk Of Magnesia 30 Ml Oral.Susp) 30 ml PO DAILY PRN PRN Reason: Constipation Nicotine Polacrilex (Nicotine Polacrilex 2 Mg Gum) 4 mg BUCCAL Q2H PRN PRN Reason: Nicotine Cravings Olanzapine (Olanzapine 2.5 Mg Tablet) 2.5 mg PO TID PRN PRN Reason: agitation Last Admin: 11/04/24 13:03 Dose: 2.5 mg Olanzapine (Olanzapine 10 Mg Tablet) 10 mg PO BEDTIME [facility] Last Admin: 11/10/24 20:28 Dose: 10 mg Tacrolimus (Tacrolimus 1 Mg Capsule) 2 mg PO DAILY [facility] Last Admin: 11/10/24 08:42 Dose: 2 mg Tacrolimus (Tacrolimus 1 Mg Capsule) 1 mg PO BEDTIME [facility] Last Admin: 11/10/24 20:30 Dose: 1 mg Trazodone HCl (Trazodone Hcl 25 Mg Halftab) 25 mg PO BEDTIME MRX1 PRN PRN Reason: Insomnia Last Admin: 11/11/24 00:34 Dose: 25 mg Allergies Allergies Allergy/AdvReac Type Severity Reaction Status Date / Time aspirin Allergy Unknown Verified 11/03/24 19:49 lithium AdvReac Severe kidney Verified 11/05/24 10:08 disease NSAIDS (Non-Steroidal AdvReac 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 Salgado is a 74 year-old woman with hx of schizoaffective disorder, bipolar type who initially self presented to [facility] due to frequent falls, she was awaiting to step down to [facility], but noted to be more paranoid, calling 911 several times reporting she was being tortured, and observed self dialoguing. On the unit, pt presents as calm, cooperative, poverty of thought. 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 She has significant gait abnormalities including freeze gait, retropulsion, poor coordination. No noted resting tremors, but does present with constricted affect. We discussed risks, benefits and alternative treatment options. Will continue olanzapine, will obtain collateral information from her OP psychiatrist. PT ordered. Pending OT assessments for cognitive/memory. Concern in terms of her ability to care for herself given physical and cognitive impairments. PLAN 11/05 continue tx. 11/06 continue tx. 11/07 continue tx. 11/08 continue tx. 11/09 continue tx. 11/10 continue tx. 11/11 continue tx. Reason for continued inpatient stay Substantial Risk for: inability to function Time Spent With Patient Time: Total time managing care of this patient today ____ minutes.
[2024-11-11] MEDS: lamoTRIgine 100 MG TABLET 200 MG PO ×2 (08:35→19:47)
[2024-11-11] MEDS: Tacrolimus 1 MG CAPSULE 2 MG PO (08:35)
[2024-11-11] MEDS: Acetaminophen 325 MG TABLET 975 MG PO ×2 (08:36→19:47)
--- NOTE | 2024-11-11 09:20 | PM.NEUROCN ---
History of Present Illness Data of Consult Service Date: 11/11/24 Primary Care Provider: Unknown Physician HPI Reason for consult: Parkinson's 74 years old woman, according to previous notes, has history of bipolar disorder and kidney liver transplant on transplant medicines recently admitted on a different hospital after a fall. She said that she lost balance and fell down at home. She has been using a walker on and off last few months stating that she started using it when she was losing balance. In previous hospital, she had workup done including head CT not revealing any acute abnormality. She was manifesting acute symptoms of depression and psychosis and was admitted here on psych unit. There was no complaint of loss of bowel bladder control. Review of Systems Review of Systems: No recent cold or flu-like illness PMFSH Past Medical History Medical History (Updated 11/11/24 @ 09:23 by Chris Burger MD) Bipolar 1 disorder HTN (hypertension) Hypothyroidism Ulcerative colitis Surgical History Surgical History (Updated 11/04/24 @ 13:32 by TERRA Licona) S/P kidney transplant S/P liver transplant Social History Social History Household Members: None Housing: House Do you presently have visiting nurse or other home services: Yes (has home services once a week) Patient Tobacco Use Status: Former Tobacco user Use of substances other than those prescribed or required for medical reasons: Yes Currently Displaying Signs/Symptoms of Drug Intoxication Withdrawal: No Advance Directives: No Advance Directives Information Provided: No Do you have thoughts of harming others: None Do you have a plan to hurt others: No Plan Recently lost weight without trying: No Patient : No : No Poor oral hygiene: No service: No Sexual orientation: Straight/Heterosexual Meds Allergies Allergy/AdvReac Type Severity Reaction Status Date / Time aspirin Allergy Unknown Verified 11/03/24 19:49 lithium AdvReac Severe kidney Verified 11/05/24 10:08 disease NSAIDS (Non-Steroidal AdvReac 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 Medications: Current Medications Acetaminophen (Acetaminophen 325 Mg Tablet) 975 mg PO TID [facility] Last Admin: 11/11/24 08:36 Dose: 975 mg Al Hydroxide/Mg Hydroxide (Magnesium Hydrox/Alum Hydrox 30 Ml Oral.Susp) 30 ml PO Q6H PRN PRN Reason: Heartburn/Nausea Albuterol Sulfate (Albuterol Sulfate (0.083%) 2.5 Mg/3 Ml Vial.Neb) 2.5 mg INHALE QID PRN PRN Reason: Shortness of Breath Lamotrigine (Lamotrigine 100 Mg Tablet) 200 mg PO BID [facility] Last Admin: 11/11/24 08:35 Dose: 200 mg Levothyroxine Sodium (Levothyroxine Sodium 50 Mcg Tablet) 50 mcg PO DAILY@0600 [facility] Last Admin: 11/11/24 05:56 Dose: 50 mcg Magnesium Hydroxide (Milk Of Magnesia 30 Ml Oral.Susp) 30 ml PO DAILY PRN PRN Reason: Constipation Nicotine Polacrilex (Nicotine Polacrilex 2 Mg Gum) 4 mg BUCCAL Q2H PRN PRN Reason: Nicotine Cravings Olanzapine (Olanzapine 2.5 Mg Tablet) 2.5 mg PO TID PRN PRN Reason: agitation Last Admin: 11/04/24 13:03 Dose: 2.5 mg Olanzapine (Olanzapine 10 Mg Tablet) 10 mg PO BEDTIME [facility] Last Admin: 11/10/24 20:28 Dose: 10 mg Tacrolimus (Tacrolimus 1 Mg Capsule) 2 mg PO DAILY [facility] Last Admin: 11/11/24 08:35 Dose: 2 mg Tacrolimus (Tacrolimus 1 Mg Capsule) 1 mg PO BEDTIME [facility] Last Admin: 11/10/24 20:30 Dose: 1 mg Trazodone HCl (Trazodone Hcl 25 Mg Halftab) 25 mg PO BEDTIME MRX1 PRN PRN Reason: Insomnia Last Admin: 11/11/24 00:34 Dose: 25 mg Home Medications ?Medication ?Instructions ?Recorded ?Confirmed ?Last Taken ?Type Tylenol 1,000 mg PO TID 11/03/24 11/03/24 Unknown History albuterol 2.5 mg inhalation QID PRN SOB 11/03/24 11/03/24 Unknown History heparin, porcine (PF) 5,000 unit subcut TID 11/03/24 11/03/24 Unknown History lamotrigine 200 mg PO BID 11/03/24 11/03/24 Unknown History levothyroxine 50 mcg PO DAILY 11/03/24 11/03/24 Unknown History olanzapine 2.5 mg PO TID PRN Anxiety 11/03/24 11/03/24 Unknown History olanzapine 10 mg PO BEDTIME 11/03/24 11/03/24 Unknown History tacrolimus 1 mg PO BEDTIME 11/03/24 11/03/24 Unknown History tacrolimus 2 mg PO DAILY 11/03/24 11/03/24 Unknown History Physical Exam Vital Signs: Vital Signs: Last Vital Signs Temp 96.8 F 11/11/24 08:00 Pulse 72 11/11/24 08:00 Resp 16 11/11/24 08:00 BP 136/64 11/11/24 08:00 Pulse Ox 97 11/11/24 08:00 O2 Del Method Room Air 11/11/24 08:00 BMI result Body Mass Index 22.9 Neuro: Other: She is alert and awake with normal spontaneity and fluency of speech. Affect is flat. There was mild exophthalmos. Face is symmetrical. Visual palumbo are full. Pupils are equal and reactive to light. There was no focal arm or leg weakness. Deep tendon reflexes are absent. There is mild cogwheeling rigidity in right upper extremity. Fine finger movements are not significantly diminished. She was able to barely stand up but was unsteady on her feet. Results Labs 11/04/24 07:40 Assessment and Plan (1) Multifactorial gait disorder: Status: Acute 74 years old woman with complicated medical and psychiatric history probably has multifactorial etiology for problem with balance and walking resulting in falling. She has features of mild mostly right-sided parkinsonism. Cerebral atrophy and microvascular disease was likely also contributing with fair possibility of chronic peripheral neuropathy. As many of these conditions do not have any meaningful treatment, I would recommend trying carbidopa levodopa 25/100 3 times a day to see if that would improve her overall ambulation. Procedures Date of Service Date of Service: 11/11/24
[2024-11-11] MEDS: OLANZapine 10 MG TABLET PO (19:47)
[2024-11-11] MEDS: Tacrolimus 1 MG CAPSULE PO (19:47)
[2024-11-11 19:50] VITALS: BP 151/71; PULSE 88; RESP 16; TEMP 36.4; O2SAT 95
[2024-11-12] MEDS: Levothyroxine Sodium 50 MCG TABLET PO (05:03)
[2024-11-12 08:00] VITALS: BP 134/64; PULSE 86; RESP 18; TEMP 36.6; O2SAT 94
[2024-11-12] MEDS: lamoTRIgine 100 MG TABLET 200 MG PO ×2 (08:51→20:52)
[2024-11-12] MEDS: Tacrolimus 1 MG CAPSULE 2 MG PO (08:51)
--- NOTE | 2024-11-12 10:07 | P.PNPSI_ITS ---
Subjective Subjective Date of Service: 11/12/24 Reason For Visit: Bipolar 1 disorder, with psychotic features Subjective Notes: Conditional Voluntary Healthcare Proxy: Yes Interim History: Pt slept through the night. She denies any concerns, no overt delusional content noted or reported. She denies SI/HI. No overt delusional content noted or reported. She is taking medications as prescribed. No behavioral concerns. poverty of thought Pt seen by neurology recommended trial of sinemet 25/100 po TID. will discuss with HCP- son. 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 memory/cog: alert, oriented to month, year, not so much situation. pending MOCA and ACL. Diagnostics Vital Signs (24Hr): Vital Signs - 24 hr 11/11/24 19:50 Temperature 97.5 F Pulse Rate 88 Respiratory Rate 16 Blood Pressure 151/71 H Pulse Oximetry 95 Oxygen Delivery Method Room Air BMI result Body Mass Index 22.9 Labs 11/04/24 07:40 Medications Medications Current Medications Acetaminophen (Acetaminophen 325 Mg Tablet) 975 mg PO TID [facility] Last Admin: 11/12/24 08:51 Dose: Not Given Al Hydroxide/Mg Hydroxide (Magnesium Hydrox/Alum Hydrox 30 Ml Oral.Susp) 30 ml PO Q6H PRN PRN Reason: Heartburn/Nausea Albuterol Sulfate (Albuterol Sulfate (0.083%) 2.5 Mg/3 Ml Vial.Neb) 2.5 mg INHALE QID PRN PRN Reason: Shortness of Breath Lamotrigine (Lamotrigine 100 Mg Tablet) 200 mg PO BID [facility] Last Admin: 11/12/24 08:51 Dose: 200 mg Levothyroxine Sodium (Levothyroxine Sodium 50 Mcg Tablet) 50 mcg PO DAILY@0600 [facility] Last Admin: 11/12/24 05:03 Dose: 50 mcg Magnesium Hydroxide (Milk Of Magnesia 30 Ml Oral.Susp) 30 ml PO DAILY PRN PRN Reason: Constipation Nicotine Polacrilex (Nicotine Polacrilex 2 Mg Gum) 4 mg BUCCAL Q2H PRN PRN Reason: Nicotine Cravings Olanzapine (Olanzapine 2.5 Mg Tablet) 2.5 mg PO TID PRN PRN Reason: agitation Last Admin: 11/04/24 13:03 Dose: 2.5 mg Olanzapine (Olanzapine 10 Mg Tablet) 10 mg PO BEDTIME [facility] Last Admin: 11/11/24 19:47 Dose: 10 mg Tacrolimus (Tacrolimus 1 Mg Capsule) 2 mg PO DAILY [facility] Last Admin: 11/12/24 08:51 Dose: 2 mg Tacrolimus (Tacrolimus 1 Mg Capsule) 1 mg PO BEDTIME [facility] Last Admin: 11/11/24 19:47 Dose: 1 mg Trazodone HCl (Trazodone Hcl 25 Mg Halftab) 25 mg PO BEDTIME MRX1 PRN PRN Reason: Insomnia Last Admin: 11/11/24 00:34 Dose: 25 mg Allergies Allergies Allergy/AdvReac Type Severity Reaction Status Date / Time aspirin Allergy Unknown Verified 11/03/24 19:49 lithium AdvReac Severe kidney Verified 11/05/24 10:08 disease NSAIDS (Non-Steroidal AdvReac 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 She has features of mild mostly right-sided parkinsonism. Cerebral atrophy and microvascular disease was likely also contributing with fair possibility of chronic peripheral neuropathy. As many of these conditions do not have any meaningful treatment, I would recommend trying carbidopa levodopa 25/100 3 times a day to see if that would improve her overall ambulation. Plan Ms. Salgado is a 74 year-old woman with hx of schizoaffective disorder, bipolar type who initially self presented to [facility] due to frequent falls, she was awaiting to step down to [facility], but noted to be more paranoid, calling 911 several times reporting she was being tortured, and observed self dialoguing. On the unit, pt presents as calm, cooperative, poverty of thought. 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 She has significant gait abnormalities including freeze gait, retropulsion, poor coordination. No noted resting tremors, but does present with constricted affect. We discussed risks, benefits and alternative treatment options. Will continue olanzapine, will obtain collateral information from her OP psychiatrist. PT ordered. Pending OT assessments for cognitive/memory. Concern in terms of her ability to care for herself given physical and cognitive impairments. PLAN 11/05 continue tx. 11/06 continue tx. 11/07 continue tx. 11/08 continue tx. 11/09 continue tx. 11/10 continue tx. 11/11 continue tx. 11/12 seen by neurology recommended trial of sinemet 25/100 TID. monitor exacerbation of psychosis, may start 2/day and increase. Sent via email information to HCP. Reason for continued inpatient stay Substantial Risk for: inability to function Time Spent With Patient Time: Total time managing care of this patient today ____ minutes.
[2024-11-12 20:00] VITALS: BP 143/67; PULSE 95; RESP 16; TEMP 36.1; O2SAT 95
[2024-11-12] MEDS: Acetaminophen 325 MG TABLET 975 MG PO (20:53)
[2024-11-12] MEDS: OLANZapine 10 MG TABLET PO (20:53)
[2024-11-12] MEDS: Tacrolimus 1 MG CAPSULE PO (20:54)
[2024-11-13] MEDS: Levothyroxine Sodium 50 MCG TABLET PO (05:57)
[2024-11-13 10:21] VITALS: BP 144/66; PULSE 76; RESP 16; TEMP 36.3; O2SAT 94
[2024-11-13] MEDS: Tacrolimus 1 MG CAPSULE 2 MG PO (10:27)
[2024-11-13] MEDS: Acetaminophen 325 MG TABLET 975 MG PO (10:28)
[2024-11-13] MEDS: lamoTRIgine 100 MG TABLET 200 MG PO ×2 (10:30→20:23)
[2024-11-13] MEDS: Carbidopa/Levodopa 25/100 TABLET 1 TAB PO ×2 (10:30→12:42)
--- NOTE | 2024-11-13 17:35 | PC.NURSE ---
juvenal if she needed something for anxiety which she aggreed and then took the Ativan
[2024-11-13 20:00] VITALS: BP 120/59; PULSE 76; RESP 16; TEMP 36.2; O2SAT 97
[2024-11-13] MEDS: OLANZapine 10 MG TABLET PO (20:23)
[2024-11-13] MEDS: Tacrolimus 1 MG CAPSULE PO (20:24)
[2024-11-14] MEDS: Levothyroxine Sodium 50 MCG TABLET PO (06:10)
[2024-11-14 08:00] VITALS: BP 171/76; PULSE 77; RESP 18; TEMP 36.3; O2SAT 97
[2024-11-14] MEDS: Tacrolimus 1 MG CAPSULE 2 MG PO (08:26)
[2024-11-14] MEDS: Carbidopa/Levodopa 25/100 TABLET 1 TAB PO ×2 (08:26→11:51)
[2024-11-14] MEDS: lamoTRIgine 100 MG TABLET 200 MG PO ×2 (08:26→20:54)
--- NOTE | 2024-11-14 17:50 | HO.PSYCHPN ---
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 memory/cog: alert, oriented to month, year, not so much situation. pending MOCA and ACL. Diagnostics Vital Signs (24Hr): Vital Signs - 24 hr 11/13/24 20:00 11/14/24 08:00 Temperature 97.1 F 97.3 F Pulse Rate 76 77 Respiratory Rate 16 18 Blood Pressure 120/59 L 171/76 H Pulse Oximetry 97 97 Oxygen Delivery Method Room Air Room Air BMI result Body Mass Index 22.9 Labs 11/18/24 09:06 Medications Medications Current Medications Al Hydroxide/Mg Hydroxide (Magnesium Hydrox/Alum Hydrox 30 Ml Oral.Susp) 30 ml PO Q6H PRN PRN Reason: Heartburn/Nausea Albuterol Sulfate (Albuterol Sulfate (0.083%) 2.5 Mg/3 Ml Vial.Neb) 2.5 mg INHALE QID PRN PRN Reason: Shortness of Breath Carbidopa/Levodopa (Carbidopa/Levodopa 25/100 Tablet) 1 tab PO BID@0800,1200 [facility] Last Admin: 11/14/24 11:51 Dose: 1 tab Lamotrigine (Lamotrigine 100 Mg Tablet) 200 mg PO BID [facility] Last Admin: 11/14/24 08:26 Dose: 200 mg Levothyroxine Sodium (Levothyroxine Sodium 50 Mcg Tablet) 50 mcg PO DAILY@0600 [facility] Last Admin: 11/14/24 06:10 Dose: 50 mcg Magnesium Hydroxide (Milk Of Magnesia 30 Ml Oral.Susp) 30 ml PO DAILY PRN PRN Reason: Constipation Nicotine Polacrilex (Nicotine Polacrilex 2 Mg Gum) 4 mg BUCCAL Q2H PRN PRN Reason: Nicotine Cravings Olanzapine (Olanzapine 2.5 Mg Tablet) 2.5 mg PO TID PRN PRN Reason: agitation Last Admin: 11/04/24 13:03 Dose: 2.5 mg Olanzapine (Olanzapine 10 Mg Tablet) 10 mg PO BEDTIME [facility] Last Admin: 11/13/24 20:23 Dose: 10 mg Tacrolimus (Tacrolimus 1 Mg Capsule) 2 mg PO DAILY [facility] Last Admin: 11/14/24 08:26 Dose: 2 mg Tacrolimus (Tacrolimus 1 Mg Capsule) 1 mg PO BEDTIME [facility] Last Admin: 11/13/24 20:24 Dose: 1 mg Trazodone HCl (Trazodone Hcl 25 Mg Halftab) 25 mg PO BEDTIME MRX1 PRN PRN Reason: Insomnia Last Admin: 11/11/24 00:34 Dose: 25 mg Allergies Allergies Allergy/AdvReac Type Severity Reaction Status Date / Time aspirin Allergy Unknown Verified 11/03/24 19:49 lithium AdvReac Severe kidney Verified 11/05/24 10:08 disease NSAIDS (Non-Steroidal AdvReac 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 She has features of mild mostly right-sided parkinsonism. Cerebral atrophy and microvascular disease was likely also contributing with fair possibility of chronic peripheral neuropathy. As many of these conditions do not have any meaningful treatment, I would recommend trying carbidopa levodopa 25/100 3 times a day to see if that would improve her overall ambulation. Plan Ms. Salgado is a 74 year-old woman with hx of schizoaffective disorder, bipolar type who initially self presented to [facility] due to frequent falls, she was awaiting to step down to [facility], but noted to be more paranoid, calling 911 several times reporting she was being tortured, and observed self dialoguing. On the unit, pt presents as calm, cooperative, poverty of thought. 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 She has significant gait abnormalities including freeze gait, retropulsion, poor coordination. No noted resting tremors, but does present with constricted affect. We discussed risks, benefits and alternative treatment options. Will continue olanzapine, will obtain collateral information from her OP psychiatrist. PT ordered. Pending OT assessments for cognitive/memory. Concern in terms of her ability to care for herself given physical and cognitive impairments. PLAN 11/05 continue tx. 11/06 continue tx. 11/07 continue tx. 11/08 continue tx. 11/09 continue tx. 11/10 continue tx. 11/11 continue tx. 11/12 seen by neurology recommended trial of sinemet 25/100 TID. monitor exacerbation of psychosis, may start 2/day and increase. Sent via email information to HCP. 11/13: Patient history of liver transplant, as well as kidney; was admitted on Tylenol scheduled t.i.d; discussed with patient who said she does not want it; filing writer discontinuing it since no clear clearance from transplant team Patient educated on: diagnosis, medication risk/benefits and medical condition Informed Consent: understands, does not understand and further education needed Reason for continued inpatient stay Substantial Risk for: inability to function Time Spent With Patient Time: Total time managing care of this patient today ____ minutes.
--- NOTE | 2024-11-14 17:59 | HO.PSYCHPN ---
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 memory/cog: alert, oriented to month, year, not so much situation. pending MOCA and ACL. Diagnostics Vital Signs (24Hr): Vital Signs - 24 hr 11/13/24 20:00 11/14/24 08:00 Temperature 97.1 F 97.3 F Pulse Rate 76 77 Respiratory Rate 16 18 Blood Pressure 120/59 L 171/76 H Pulse Oximetry 97 97 Oxygen Delivery Method Room Air Room Air BMI result Body Mass Index 22.9 Labs 11/18/24 09:06 Medications Medications Current Medications Al Hydroxide/Mg Hydroxide (Magnesium Hydrox/Alum Hydrox 30 Ml Oral.Susp) 30 ml PO Q6H PRN PRN Reason: Heartburn/Nausea Albuterol Sulfate (Albuterol Sulfate (0.083%) 2.5 Mg/3 Ml Vial.Neb) 2.5 mg INHALE QID PRN PRN Reason: Shortness of Breath Carbidopa/Levodopa (Carbidopa/Levodopa 25/100 Tablet) 1 tab PO BID@0800,1200 [facility] Last Admin: 11/14/24 11:51 Dose: 1 tab Lamotrigine (Lamotrigine 100 Mg Tablet) 200 mg PO BID [facility] Last Admin: 11/14/24 08:26 Dose: 200 mg Levothyroxine Sodium (Levothyroxine Sodium 50 Mcg Tablet) 50 mcg PO DAILY@0600 [facility] Last Admin: 11/14/24 06:10 Dose: 50 mcg Magnesium Hydroxide (Milk Of Magnesia 30 Ml Oral.Susp) 30 ml PO DAILY PRN PRN Reason: Constipation Nicotine Polacrilex (Nicotine Polacrilex 2 Mg Gum) 4 mg BUCCAL Q2H PRN PRN Reason: Nicotine Cravings Olanzapine (Olanzapine 2.5 Mg Tablet) 2.5 mg PO TID PRN PRN Reason: agitation Last Admin: 11/04/24 13:03 Dose: 2.5 mg Olanzapine (Olanzapine 10 Mg Tablet) 10 mg PO BEDTIME [facility] Last Admin: 11/13/24 20:23 Dose: 10 mg Tacrolimus (Tacrolimus 1 Mg Capsule) 2 mg PO DAILY [facility] Last Admin: 11/14/24 08:26 Dose: 2 mg Tacrolimus (Tacrolimus 1 Mg Capsule) 1 mg PO BEDTIME [facility] Last Admin: 11/13/24 20:24 Dose: 1 mg Trazodone HCl (Trazodone Hcl 25 Mg Halftab) 25 mg PO BEDTIME MRX1 PRN PRN Reason: Insomnia Last Admin: 11/11/24 00:34 Dose: 25 mg Allergies Allergies Allergy/AdvReac Type Severity Reaction Status Date / Time aspirin Allergy Unknown Verified 11/03/24 19:49 lithium AdvReac Severe kidney Verified 11/05/24 10:08 disease NSAIDS (Non-Steroidal AdvReac 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 She has features of mild mostly right-sided parkinsonism. Cerebral atrophy and microvascular disease was likely also contributing with fair possibility of chronic peripheral neuropathy. As many of these conditions do not have any meaningful treatment, I would recommend trying carbidopa levodopa 25/100 3 times a day to see if that would improve her overall ambulation. Plan Ms. Salgado is a 74 year-old woman with hx of schizoaffective disorder, bipolar type who initially self presented to [facility] due to frequent falls, she was awaiting to step down to [facility], but noted to be more paranoid, calling 911 several times reporting she was being tortured, and observed self dialoguing. On the unit, pt presents as calm, cooperative, poverty of thought. 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 She has significant gait abnormalities including freeze gait, retropulsion, poor coordination. No noted resting tremors, but does present with constricted affect. We discussed risks, benefits and alternative treatment options. Will continue olanzapine, will obtain collateral information from her OP psychiatrist. PT ordered. Pending OT assessments for cognitive/memory. Concern in terms of her ability to care for herself given physical and cognitive impairments. PLAN 11/05 continue tx. 11/06 continue tx. 11/07 continue tx. 11/08 continue tx. 11/09 continue tx. 11/10 continue tx. 11/11 continue tx. 11/12 seen by neurology recommended trial of sinemet 25/100 TID. monitor exacerbation of psychosis, may start 2/day and increase. Sent via email information to HCP. 11/13: Patient history of liver transplant, as well as kidney; was admitted on Tylenol scheduled t.i.d; discussed with patient who said she does not want it; creative writer discontinuing it since no clear clearance from transplant team Patient educated on: medical condition Informed Consent: understands Reason for continued inpatient stay Substantial Risk for: inability to function Time Spent With Patient Time: Total time managing care of this patient today ____ minutes.
[2024-11-14 20:00] VITALS: BP 134/64; PULSE 76; RESP 18; TEMP 36.4; O2SAT 97
[2024-11-14] MEDS: Tacrolimus 1 MG CAPSULE PO (20:54)
[2024-11-14] MEDS: OLANZapine 10 MG TABLET PO (20:54)
[2024-11-15] MEDS: Levothyroxine Sodium 50 MCG TABLET PO (05:54)
[2024-11-15 08:00] VITALS: BP 145/67; PULSE 84; RESP 18; TEMP 36.3; O2SAT 97
[2024-11-15] MEDS: lamoTRIgine 100 MG TABLET 200 MG PO ×2 (08:36→20:38)
[2024-11-15] MEDS: Tacrolimus 1 MG CAPSULE 2 MG PO (08:36)
[2024-11-15] MEDS: Carbidopa/Levodopa 25/100 TABLET 1 TAB PO ×2 (08:36→11:36)
--- NOTE | 2024-11-15 15:57 | HO.PSYCHPN ---
Subjective Subjective Date of Service: 11/15/24 Reason For Visit: Bipolar 1 disorder, with psychotic features Subjective Notes: Conditional Voluntary Healthcare Proxy: Yes Interim History: Pt slept through the night. She started sinemet and appears to be able to ambulate much easier. She presents with slightly brighter affect, non labile. She denies SI/HI. No overt psychosis nor delusions. She is taking medications as prescribed. Review of Systems Review of Systems No recent cold or flu-like illness Mental Status Exam Mental Status Exam Narrative: Appearance: thin, pale, sitting in wheelchair, constricted affect, fair hygiene, in NAD Behavior: superficially cooperative Psychomotor: retardation noted, no resting tremors, Speech: mostly clear, some delayed in response but not significant, spontaneous TP: mostly linear, some poverty of thought TC:feeling better Mood: okay Affect: brighter, non labile SI: denies HI: denies VH/AH: does not appear internally preoccupied. 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 memory/cog: alert, oriented to month, year, not so much situation. Diagnostics Vital Signs (24Hr): Vital Signs - 24 hr 11/14/24 20:00 11/15/24 08:00 Temperature 97.6 F 97.3 F Pulse Rate 76 84 Respiratory Rate 18 18 Blood Pressure 134/64 145/67 H Pulse Oximetry 97 97 Oxygen Delivery Method Room Air Room Air BMI result Body Mass Index 22.9 Labs 11/04/24 07:40 Medications Medications Current Medications Al Hydroxide/Mg Hydroxide (Magnesium Hydrox/Alum Hydrox 30 Ml Oral.Susp) 30 ml PO Q6H PRN PRN Reason: Heartburn/Nausea Albuterol Sulfate (Albuterol Sulfate (0.083%) 2.5 Mg/3 Ml Vial.Neb) 2.5 mg INHALE QID PRN PRN Reason: Shortness of Breath Carbidopa/Levodopa (Carbidopa/Levodopa 25/100 Tablet) 1 tab PO BID@0800,1200 [facility] Last Admin: 11/15/24 11:36 Dose: 1 tab Lamotrigine (Lamotrigine 100 Mg Tablet) 200 mg PO BID [facility] Last Admin: 11/15/24 08:36 Dose: 200 mg Levothyroxine Sodium (Levothyroxine Sodium 50 Mcg Tablet) 50 mcg PO DAILY@0600 [facility] Last Admin: 11/15/24 05:54 Dose: 50 mcg Magnesium Hydroxide (Milk Of Magnesia 30 Ml Oral.Susp) 30 ml PO DAILY PRN PRN Reason: Constipation Nicotine Polacrilex (Nicotine Polacrilex 2 Mg Gum) 4 mg BUCCAL Q2H PRN PRN Reason: Nicotine Cravings Olanzapine (Olanzapine 2.5 Mg Tablet) 2.5 mg PO TID PRN PRN Reason: agitation Last Admin: 11/04/24 13:03 Dose: 2.5 mg Olanzapine (Olanzapine 10 Mg Tablet) 10 mg PO BEDTIME [facility] Last Admin: 11/14/24 20:54 Dose: 10 mg Tacrolimus (Tacrolimus 1 Mg Capsule) 2 mg PO DAILY [facility] Last Admin: 11/15/24 08:36 Dose: 2 mg Tacrolimus (Tacrolimus 1 Mg Capsule) 1 mg PO BEDTIME [facility] Last Admin: 11/14/24 20:54 Dose: 1 mg Trazodone HCl (Trazodone Hcl 25 Mg Halftab) 25 mg PO BEDTIME MRX1 PRN PRN Reason: Insomnia Last Admin: 11/11/24 00:34 Dose: 25 mg Allergies Allergies Allergy/AdvReac Type Severity Reaction Status Date / Time aspirin Allergy Unknown Verified 11/03/24 19:49 lithium AdvReac Severe kidney Verified 11/05/24 10:08 disease NSAIDS (Non-Steroidal AdvReac 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 She has features of mild mostly right-sided parkinsonism. Cerebral atrophy and microvascular disease was likely also contributing with fair possibility of chronic peripheral neuropathy. As many of these conditions do not have any meaningful treatment, I would recommend trying carbidopa levodopa 25/100 3 times a day to see if that would improve her overall ambulation. Plan Ms. Salgado is a 74 year-old woman with hx of schizoaffective disorder, bipolar type who initially self presented to [facility] due to frequent falls, she was awaiting to step down to [facility], but noted to be more paranoid, calling 911 several times reporting she was being tortured, and observed self dialoguing. On the unit, pt presents as calm, cooperative, poverty of thought. 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 She has significant gait abnormalities including freeze gait, retropulsion, poor coordination. No noted resting tremors, but does present with constricted affect. We discussed risks, benefits and alternative treatment options. Will continue olanzapine, will obtain collateral information from her OP psychiatrist. PT ordered. Pending OT assessments for cognitive/memory. Concern in terms of her ability to care for herself given physical and cognitive impairments. PLAN 11/05 continue tx. 11/06 continue tx. 11/07 continue tx. 11/08 continue tx. 11/09 continue tx. 11/10 continue tx. 11/11 continue tx. 11/12 seen by neurology recommended trial of sinemet 25/100 TID. monitor exacerbation of psychosis, may start 2/day and increase. Sent via email information to HCP. 11/13: Patient history of liver transplant, as well as kidney; was admitted on Tylenol scheduled t.i.d; discussed with patient who said she does not want it; journalists and other writers discontinuing it since no clear clearance from transplant team 11/15 continue tx. Reason for continued inpatient stay Substantial Risk for: inability to function Time Spent With Patient Time: Total time managing care of this patient today ____ minutes.
[2024-11-15 20:00] VITALS: BP 135/61; PULSE 75; RESP 18; TEMP 36.2; O2SAT 97
[2024-11-15] MEDS: Tacrolimus 1 MG CAPSULE PO (20:39)
[2024-11-15] MEDS: OLANZapine 10 MG TABLET PO (20:39)
[2024-11-15] MEDS: Magnesium Hydrox/Alum Hydrox 30 ML ORAL.SUSP PO (20:53)
[2024-11-16] MEDS: Ondansetron ODT 4 MG TAB.RAPDIS TRANSLINGU ×2 (02:40→15:37)
[2024-11-16] MEDS: Levothyroxine Sodium 50 MCG TABLET PO (05:34)
[2024-11-16 08:31] VITALS: BP 113/56; PULSE 91; RESP 16; TEMP 36.2; O2SAT 95
[2024-11-16] MEDS: lamoTRIgine 100 MG TABLET 200 MG PO ×2 (08:32→19:23)
[2024-11-16] MEDS: Tacrolimus 1 MG CAPSULE 2 MG PO (08:32)
[2024-11-16] MEDS: Carbidopa/Levodopa 25/100 TABLET 1 TAB PO ×2 (08:32→12:41)
--- NOTE | 2024-11-16 16:48 | P.PNPSI_ITS ---
Subjective Subjective Date of Service: 11/16/24 Reason For Visit: Bipolar 1 disorder, with psychotic features Subjective Notes: Conditional Voluntary Interim History: Pt slept through the night. She started sinemet and appears to be able to ambulate much easier. She presents with slightly brighter affect, non labile. She denies SI/HI. No overt psychosis nor delusions. She is taking medications as prescribed. She has been able to participate in PT. Review of Systems Review of Systems No recent cold or flu-like illness Mental Status Exam Mental Status Exam Narrative: Appearance: thin, pale, sitting in wheelchair, constricted affect, fair hygiene, in NAD Behavior: superficially cooperative Psychomotor: retardation noted, no resting tremors, Speech: mostly clear, some delayed in response but not significant, spontaneous TP: mostly linear, some poverty of thought TC:feeling better Mood: okay Affect: brighter, non labile SI: denies HI: denies VH/AH: does not appear internally preoccupied. 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 memory/cog: alert, oriented to month, year, not so much situation. Diagnostics Vital Signs (24Hr): Vital Signs - 24 hr 11/15/24 20:00 11/16/24 08:31 Temperature 97.1 F 97.1 F Pulse Rate 75 91 Respiratory Rate 18 16 Blood Pressure 135/61 113/56 L Pulse Oximetry 97 95 Oxygen Delivery Method Room Air Room Air BMI result Body Mass Index 22.9 Labs 11/04/24 07:40 Medications Medications Current Medications Al Hydroxide/Mg Hydroxide (Magnesium Hydrox/Alum Hydrox 30 Ml Oral.Susp) 30 ml PO Q6H PRN PRN Reason: Heartburn/Nausea Last Admin: 11/15/24 20:53 Dose: 30 ml Albuterol Sulfate (Albuterol Sulfate (0.083%) 2.5 Mg/3 Ml Vial.Neb) 2.5 mg INHALE QID PRN PRN Reason: Shortness of Breath Carbidopa/Levodopa (Carbidopa/Levodopa 25/100 Tablet) 1 tab PO BID@0800,1200 [facility] Last Admin: 11/16/24 12:41 Dose: 1 tab Lamotrigine (Lamotrigine 100 Mg Tablet) 200 mg PO BID [facility] Last Admin: 11/16/24 08:32 Dose: 200 mg Levothyroxine Sodium (Levothyroxine Sodium 50 Mcg Tablet) 50 mcg PO DAILY@0600 [facility] Last Admin: 11/16/24 05:34 Dose: 50 mcg Magnesium Hydroxide (Milk Of Magnesia 30 Ml Oral.Susp) 30 ml PO DAILY PRN PRN Reason: Constipation Nicotine Polacrilex (Nicotine Polacrilex 2 Mg Gum) 4 mg BUCCAL Q2H PRN PRN Reason: Nicotine Cravings Olanzapine (Olanzapine 2.5 Mg Tablet) 2.5 mg PO TID PRN PRN Reason: agitation Last Admin: 11/04/24 13:03 Dose: 2.5 mg Olanzapine (Olanzapine 10 Mg Tablet) 10 mg PO BEDTIME [facility] Last Admin: 11/15/24 20:39 Dose: 10 mg Ondansetron HCl (Ondansetron Odt 4 Mg Tab.Rapdis) 4 mg TRANSLINGU Q6H PRN PRN Reason: Nausea and Vomiting Last Admin: 11/16/24 15:37 Dose: 4 mg Tacrolimus (Tacrolimus 1 Mg Capsule) 2 mg PO DAILY [facility] Last Admin: 11/16/24 08:32 Dose: 2 mg Tacrolimus (Tacrolimus 1 Mg Capsule) 1 mg PO BEDTIME [facility] Last Admin: 11/15/24 20:39 Dose: 1 mg Trazodone HCl (Trazodone Hcl 25 Mg Halftab) 25 mg PO BEDTIME MRX1 PRN PRN Reason: Insomnia Last Admin: 11/11/24 00:34 Dose: 25 mg Allergies Allergies Allergy/AdvReac Type Severity Reaction Status Date / Time aspirin Allergy Unknown Verified 11/03/24 19:49 lithium AdvReac Severe kidney Verified 11/05/24 10:08 disease NSAIDS (Non-Steroidal AdvReac 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 She has features of mild mostly right-sided parkinsonism. Cerebral atrophy and microvascular disease was likely also contributing with fair possibility of chronic peripheral neuropathy. As many of these conditions do not have any meaningful treatment, I would recommend trying carbidopa levodopa 25/100 3 times a day to see if that would improve her overall ambulation. Plan Ms. Salgado is a 74 year-old woman with hx of schizoaffective disorder, bipolar type who initially self presented to [facility] due to frequent falls, she was awaiting to step down to [facility], but noted to be more paranoid, calling 911 several times reporting she was being tortured, and observed self dialoguing. On the unit, pt presents as calm, cooperative, poverty of thought. 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 She has significant gait abnormalities including freeze gait, retropulsion, poor coordination. No noted resting tremors, but does present with constricted affect. We discussed risks, benefits and alternative treatment options. Will continue olanzapine, will obtain collateral information from her OP psychiatrist. PT ordered. Pending OT assessments for cognitive/memory. Concern in terms of her ability to care for herself given physical and cognitive impairments. PLAN 11/05 continue tx. 11/06 continue tx. 11/07 continue tx. 11/08 continue tx. 11/09 continue tx. 11/10 continue tx. 11/11 continue tx. 11/12 seen by neurology recommended trial of sinemet 25/100 TID. monitor exacerbation of psychosis, may start 2/day and increase. Sent via email information to HCP. 11/13: Patient history of liver transplant, as well as kidney; was admitted on Tylenol scheduled t.i.d; discussed with patient who said she does not want it; advertising copywriter discontinuing it since no clear clearance from transplant team 11/15 continue tx. 11/16 continue tx. Reason for continued inpatient stay Substantial Risk for: inability to function Time Spent With Patient Time: Total time managing care of this patient today ____ minutes.
[2024-11-16] MEDS: OLANZapine 10 MG TABLET PO (19:23)
[2024-11-16] MEDS: Tacrolimus 1 MG CAPSULE PO (19:24)
[2024-11-16 19:34] VITALS: BP 118/56; PULSE 79; RESP 16; TEMP 36; O2SAT 95
[2024-11-17] MEDS: Levothyroxine Sodium 50 MCG TABLET PO (05:11)
[2024-11-17 08:00] VITALS: BP 138/61; PULSE 85; RESP 16; TEMP 36.4; O2SAT 97
[2024-11-17] MEDS: Tacrolimus 1 MG CAPSULE 2 MG PO (08:44)
[2024-11-17] MEDS: lamoTRIgine 100 MG TABLET 200 MG PO ×2 (08:45→20:09)
[2024-11-17] MEDS: Carbidopa/Levodopa 25/100 TABLET 1 TAB PO ×2 (08:45→13:12)
--- NOTE | 2024-11-17 12:43 | P.PNPSI_ITS ---
Subjective Subjective Date of Service: 11/17/24 Reason For Visit: Bipolar 1 disorder, with psychotic features Subjective Notes: Conditional Voluntary Healthcare Proxy: Yes Interim History: Pt slept through the night. Pt reports feeling better, reports able to walk better. She denies SI/HI. No overt psychosis or delusions. She is taking medications as prescribed. will check tacrolimus level, CMP, Mg tomorrow morning. Review of Systems Review of Systems No recent cold or flu-like illness Mental Status Exam Mental Status Exam Narrative: Appearance: thin, pale, sitting in wheelchair, constricted affect, fair hygiene, in NAD Behavior: superficially cooperative Psychomotor: retardation noted, no resting tremors, Speech: mostly clear, some delayed in response but not significant, spontaneous TP: mostly linear, some poverty of thought TC:feeling better Mood: okay Affect: brighter, non labile SI: denies HI: denies VH/AH: does not appear internally preoccupied. 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 memory/cog: alert, oriented to month, year, not so much situation. Diagnostics Vital Signs (24Hr): Vital Signs - 24 hr 11/16/24 19:34 11/17/24 08:00 Temperature 96.8 F 97.5 F Pulse Rate 79 85 Respiratory Rate 16 16 Blood Pressure 118/56 L 138/61 Pulse Oximetry 95 97 Oxygen Delivery Method Room Air Room Air BMI result Body Mass Index 22.9 Labs 11/04/24 07:40 Medications Medications Current Medications Al Hydroxide/Mg Hydroxide (Magnesium Hydrox/Alum Hydrox 30 Ml Oral.Susp) 30 ml PO Q6H PRN PRN Reason: Heartburn/Nausea Last Admin: 11/15/24 20:53 Dose: 30 ml Albuterol Sulfate (Albuterol Sulfate (0.083%) 2.5 Mg/3 Ml Vial.Neb) 2.5 mg INHALE QID PRN PRN Reason: Shortness of Breath Carbidopa/Levodopa (Carbidopa/Levodopa 25/100 Tablet) 1 tab PO BID@0800,1200 [facility] Last Admin: 11/17/24 08:45 Dose: 1 tab Lamotrigine (Lamotrigine 100 Mg Tablet) 200 mg PO BID [facility] Last Admin: 11/17/24 08:45 Dose: 200 mg Levothyroxine Sodium (Levothyroxine Sodium 50 Mcg Tablet) 50 mcg PO DAILY@0600 [facility] Last Admin: 11/17/24 05:11 Dose: 50 mcg Magnesium Hydroxide (Milk Of Magnesia 30 Ml Oral.Susp) 30 ml PO DAILY PRN PRN Reason: Constipation Nicotine Polacrilex (Nicotine Polacrilex 2 Mg Gum) 4 mg BUCCAL Q2H PRN PRN Reason: Nicotine Cravings Olanzapine (Olanzapine 2.5 Mg Tablet) 2.5 mg PO TID PRN PRN Reason: agitation Last Admin: 11/04/24 13:03 Dose: 2.5 mg Olanzapine (Olanzapine 10 Mg Tablet) 10 mg PO BEDTIME [facility] Last Admin: 11/16/24 19:23 Dose: 10 mg Ondansetron HCl (Ondansetron Odt 4 Mg Tab.Rapdis) 4 mg TRANSLINGU Q6H PRN PRN Reason: Nausea and Vomiting Last Admin: 11/16/24 15:37 Dose: 4 mg Tacrolimus (Tacrolimus 1 Mg Capsule) 2 mg PO DAILY [facility] Last Admin: 11/17/24 08:44 Dose: 2 mg Tacrolimus (Tacrolimus 1 Mg Capsule) 1 mg PO BEDTIME [facility] Last Admin: 11/16/24 19:24 Dose: 1 mg Trazodone HCl (Trazodone Hcl 25 Mg Halftab) 25 mg PO BEDTIME MRX1 PRN PRN Reason: Insomnia Last Admin: 11/11/24 00:34 Dose: 25 mg Allergies Allergies Allergy/AdvReac Type Severity Reaction Status Date / Time aspirin Allergy Unknown Verified 11/03/24 19:49 lithium AdvReac Severe kidney Verified 11/05/24 10:08 disease NSAIDS (Non-Steroidal AdvReac 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 She has features of mild mostly right-sided parkinsonism. Cerebral atrophy and microvascular disease was likely also contributing with fair possibility of chronic peripheral neuropathy. As many of these conditions do not have any meaningful treatment, I would recommend trying carbidopa levodopa 25/100 3 times a day to see if that would improve her overall ambulation. Plan Ms. Salgado is a 74 year-old woman with hx of schizoaffective disorder, bipolar type who initially self presented to [facility] due to frequent falls, she was awaiting to step down to [facility], but noted to be more paranoid, calling 911 several times reporting she was being tortured, and observed self dialoguing. On the unit, pt presents as calm, cooperative, poverty of thought. 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 She has significant gait abnormalities including freeze gait, retropulsion, poor coordination. No noted resting tremors, but does present with constricted affect. We discussed risks, benefits and alternative treatment options. Will continue olanzapine, will obtain collateral information from her OP psychiatrist. PT ordered. Pending OT assessments for cognitive/memory. Concern in terms of her ability to care for herself given physical and cognitive impairments. PLAN 11/05 continue tx. 11/06 continue tx. 11/07 continue tx. 11/08 continue tx. 11/09 continue tx. 11/10 continue tx. 11/11 continue tx. 11/12 seen by neurology recommended trial of sinemet 25/100 TID. monitor exacerbation of psychosis, may start 2/day and increase. Sent via email information to HCP. 11/13: Patient history of liver transplant, as well as kidney; was admitted on Tylenol scheduled t.i.d; discussed with patient who said she does not want it; bond underwriter discontinuing it since no clear clearance from transplant team 11/15 continue tx. 11/16 continue tx. 11/17 will check tacrolimus level, CMP, Mg tomorrow morning. continue tx. Reason for continued inpatient stay Substantial Risk for: inability to function Time Spent With Patient Time: Total time managing care of this patient today ____ minutes.
[2024-11-17 20:00] VITALS: BP 129/60; PULSE 75; RESP 18; TEMP 36.5; O2SAT 97
[2024-11-17] MEDS: OLANZapine 10 MG TABLET PO (20:09)
[2024-11-17] MEDS: Tacrolimus 1 MG CAPSULE PO (20:09)
[2024-11-17] MEDS: Ondansetron ODT 4 MG TAB.RAPDIS TRANSLINGU (20:41)
--- NOTE | 2024-11-18 | ECG_ITS ---
Test Reason : HYPERKALMIA Blood Pressure : */* mmHG Vent. Rate : 91 BPM Atrial Rate : 81 BPM P-R Int : 204 ms QRS Dur : 148 ms QT Int : 384 ms P-R-T Axes : 58 -62 64 degrees QTcB Int : 472 ms Sinus rhythm with occasional Premature ventricular complexes Possible Left atrial enlargement Left axis deviation Left ventricular hypertrophy with QRS widening ( [place] product ) Inferior infarct , age undetermined Abnormal ECG No previous ECGs available Referred By: Roxanne Whitt Electronically Signed By: Jose Gunter
[2024-11-18] MEDS: Levothyroxine Sodium 50 MCG TABLET PO (05:22)
[2024-11-18 08:00] VITALS: BP 101/71; PULSE 70; RESP 14; TEMP 36.1; O2SAT 97
--- NOTE | 2024-11-18 08:41 | P.PNPSI_ITS ---
Subjective Subjective Reason For Visit: Bipolar 1 disorder, with psychotic features Diagnostics Vital Signs (24Hr): Vital Signs - 24 hr 11/17/24 20:00 Temperature 97.7 F Pulse Rate 75 Respiratory Rate 18 Blood Pressure 129/60 Pulse Oximetry 97 Oxygen Delivery Method Room Air BMI result Body Mass Index 22.9 Labs 11/04/24 07:40 Medications Medications Current Medications Al Hydroxide/Mg Hydroxide (Magnesium Hydrox/Alum Hydrox 30 Ml Oral.Susp) 30 ml PO Q6H PRN PRN Reason: Heartburn/Nausea Last Admin: 11/15/24 20:53 Dose: 30 ml Albuterol Sulfate (Albuterol Sulfate (0.083%) 2.5 Mg/3 Ml Vial.Neb) 2.5 mg INHALE QID PRN PRN Reason: Shortness of Breath Carbidopa/Levodopa (Carbidopa/Levodopa 25/100 Tablet) 1 tab PO BID@0800,1200 [facility] Last Admin: 11/17/24 13:12 Dose: 1 tab Lamotrigine (Lamotrigine 100 Mg Tablet) 200 mg PO BID [facility] Last Admin: 11/17/24 20:09 Dose: 200 mg Levothyroxine Sodium (Levothyroxine Sodium 50 Mcg Tablet) 50 mcg PO DAILY@0600 [facility] Last Admin: 11/18/24 05:22 Dose: 50 mcg Magnesium Hydroxide (Milk Of Magnesia 30 Ml Oral.Susp) 30 ml PO DAILY PRN PRN Reason: Constipation Nicotine Polacrilex (Nicotine Polacrilex 2 Mg Gum) 4 mg BUCCAL Q2H PRN PRN Reason: Nicotine Cravings Olanzapine (Olanzapine 2.5 Mg Tablet) 2.5 mg PO TID PRN PRN Reason: agitation Last Admin: 11/04/24 13:03 Dose: 2.5 mg Olanzapine (Olanzapine 10 Mg Tablet) 10 mg PO BEDTIME [facility] Last Admin: 11/17/24 20:09 Dose: 10 mg Ondansetron HCl (Ondansetron Odt 4 Mg Tab.Rapdis) 4 mg TRANSLINGU Q6H PRN PRN Reason: Nausea and Vomiting Last Admin: 11/17/24 20:41 Dose: 4 mg Tacrolimus (Tacrolimus 1 Mg Capsule) 2 mg PO DAILY [facility] Last Admin: 11/17/24 08:44 Dose: 2 mg Tacrolimus (Tacrolimus 1 Mg Capsule) 1 mg PO BEDTIME [facility] Last Admin: 11/17/24 20:09 Dose: 1 mg Trazodone HCl (Trazodone Hcl 25 Mg Halftab) 25 mg PO BEDTIME MRX1 PRN PRN Reason: Insomnia Last Admin: 11/11/24 00:34 Dose: 25 mg Allergies Allergies Allergy/AdvReac Type Severity Reaction Status Date / Time aspirin Allergy Unknown Verified 11/03/24 19:49 lithium AdvReac Severe kidney Verified 11/05/24 10:08 disease NSAIDS (Non-Steroidal AdvReac 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 She has features of mild mostly right-sided parkinsonism. Cerebral atrophy and microvascular disease was likely also contributing with fair possibility of chronic peripheral neuropathy. As many of these conditions do not have any meaningful treatment, I would recommend trying carbidopa levodopa 25/100 3 times a day to see if that would improve her overall ambulation. Plan Ms. Salgado is a 74 year-old woman with hx of schizoaffective disorder, bipolar type who initially self presented to [facility] due to frequent falls, she was awaiting to step down to [facility], but noted to be more paranoid, calling 911 several times reporting she was being tortured, and observed self dialoguing. On the unit, pt presents as calm, cooperative, poverty of thought. 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 She has significant gait abnormalities including freeze gait, retropulsion, poor coordination. No noted resting tremors, but does present with constricted affect. We discussed risks, benefits and alternative treatment options. Will continue olanzapine, will obtain collateral information from her OP psychiatrist. PT ordered. Pending OT assessments for cognitive/memory. Concern in terms of her ability to care for herself given physical and cognitive impairments. PLAN 11/05 continue tx. 11/06 continue tx. 11/07 continue tx. 11/08 continue tx. 11/09 continue tx. 11/10 continue tx. 11/11 continue tx. 11/12 seen by neurology recommended trial of sinemet 25/100 TID. monitor exacerbation of psychosis, may start 2/day and increase. Sent via email information to HCP. 11/13: Patient history of liver transplant, as well as kidney; was admitted on Tylenol scheduled t.i.d; discussed with patient who said she does not want it; typewriter aligner discontinuing it since no clear clearance from transplant team 11/15 continue tx. 11/16 continue tx. 11/17 will check tacrolimus level, CMP, Mg tomorrow morning. continue tx. Time Spent With Patient Time: Total time managing care of this patient today ____ minutes.
[2024-11-18] MEDS: lamoTRIgine 100 MG TABLET 200 MG PO (09:08)
[2024-11-18] MEDS: Carbidopa/Levodopa 25/100 TABLET 1 TAB PO (09:08)
[2024-11-18] MEDS: Tacrolimus 1 MG CAPSULE 2 MG PO (09:08)
[2024-11-18 09:32] LABS: Alanine Aminotransferase 15 U/L (0-31); Albumin Level 3.9 g/dL (3.5-5.0); Alkaline Phosphatase 90 U/L (39-117); Anion Gap 17 (12-20); Aspartate Amino Transferase 29 U/L (5-31); Bilirubin Total 0.5 mg/dL (0.0-1.0); Calcium 10.1 mg/dL (8.4-10.2); Carbon Dioxide 18 mmol/L (22-29); Chloride 103 mmol/L (96-108); Glucose Random 113 mg/dL (60-115); Phosphorus 6.1 mg/dL (2.7-4.5); Sodium 131 mmol/L (135-145); Total Protein 8.2 g/dL (6.5-8.0)
[2024-11-18 09:35] LABS: Creatinine Clr Calc Pharmacy 10.8; Estimated Glomerular Filt Rate 10; Magnesium 3.6 mg/dL (1.6-2.6)
[2024-11-18 09:40] LABS: Blood Urea Nitrogen 133 mg/dL (9-16)
--- NOTE | 2024-11-18 10:05 | P.DS_ITS ---
DS: Providers Provider Date of Service: 11/18/24 Date of admission: 11/03/24 18:21 Date of discharge: 11/18/24 Primary care physician: Unknown Physician Consults: 11/03/24 19:59 Consult to Hospitalist Routine Comment: Consulting Provider: [facility] Reason For Exam: admission physical 11/08/24 20:17 Consult to Neurology Routine Consulting Provider: [facility] Reason for consultation: parkinsonism? Has provider been notified: Yes 11/18/24 09:40 Consult to Hospitalist Stat Comment: Consulting Provider: [facility] Reason For Exam: hyperkalemia/renal/liver transplant 11/18/24 09:49 Consult to Nephrology Routine Consulting Provider: [facility] Reason for consultation: hyperkalemia 7.0 inc creat/ s/p renal transplant Has provider been notified: No DS: Diagnosis Discharge Diagnosis (1) Schizoaffective disorder, bipolar type: Status: Acute (2) Multifactorial gait disorder: Status: Acute DS: Medications Discharge Medications Home Medications: Home Medications ?Medication ?Instructions ?Recorded ?Confirmed Tylenol 1,000 mg PO TID 11/03/24 11/03/24 albuterol 2.5 mg inhalation QID PRN SOB 11/03/24 11/03/24 heparin, porcine (PF) 5,000 unit subcut TID 11/03/24 11/03/24 lamotrigine 200 mg PO BID 11/03/24 11/03/24 levothyroxine 50 mcg PO DAILY 11/03/24 11/03/24 olanzapine 2.5 mg PO TID PRN Anxiety 11/03/24 11/03/24 olanzapine 10 mg PO BEDTIME 11/03/24 11/03/24 tacrolimus 1 mg PO BEDTIME 11/03/24 11/03/24 tacrolimus 2 mg PO DAILY 11/03/24 11/03/24 Mental Status Exam Mental Status Exam Narrative: Appearance: thin, pale, sitting in wheelchair, constricted affect, fair hygiene, in NAD Behavior: superficially cooperative Psychomotor: retardation noted, no resting tremors, Speech: mostly clear, some delayed in response but not significant, spontaneous TP: mostly linear, some poverty of thought TC:worried about medical condition Mood: worried Affect:tearful, worried about medical condition SI: denies HI: denies VH/AH: does not appear internally preoccupied. 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 memory/cog: alert,oriented x 3. Data Data Completed and Pending Completed studies during hospitalization [Text1]: 11/18/24 11/18/24 07:18 09:06 Sodium 131 L Potassium 7.0 H* D Chloride 103 Carbon Dioxide 18 L Anion Gap 17 BUN 133 H Creatinine 4.13 H* Estim Creat Clear Calc 10.8 Estimated GFR 10 Random Glucose 113 Calcium 10.1 Phosphorus 6.1 H Magnesium 3.6 H* Total Bilirubin 0.5 AST 29 ALT 15 Alkaline Phosphatase 90 Total Protein 8.2 H Albumin 3.9 Tacrolimus Pending DS: Summary Hospital Course Hospital Course: Ms. Salgado is a 74 year-old woman with hx of schizoaffective disorder, bipolar type who self presented to [facility] due to a fall. She was awaiting STR recommended by PT when she presented as increasingly more paranoid, calling 911 several times reporting she was being tortured and observed self-dialoguing. Pertinent labs in the ED include cbc without leukocytosis. CMP with no electrolyte abnormalities, BUN elevated 38, Cr 2.16 ( post kidney/liver transplant with baseline Cr 2.6 on tacrolimus), AST 36, ALT 20. She has medical hx of ulcerative colitis, graves disease. She apparently did have acute urinary retention on 11/01/2024. Her tacrolimus level was subtherapeutic at 2.8, range goal between 4-6ng/ml. It is documented that patient has been subtherapeutic for long time and her OP nephrology aware of this. Head CT showed atrophy and microvascular changes. On the unit, pt presents with constricted affect. She is calm, poverty of thought. She reports she is not sure why she is here. When asked about fear of someone attempting to harm her while at the other hospital, pt declines feeling fearful or calling 911. 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 She denies SI/HI. She currently denies hearing voices or seeing things other's can't see. She reports she was under the impression that being here had more to do with physical therapy to help with ambulation and prevent falls. She reports she has been working with psychiatrist, Dr. Damion Lynn for a long time and has a new therapist. She reports taking medications as prescribed. Past Psychiatric History: Inpt: multiple in the past, most recently per records, 2020 in [place], [place] due to suicidal ideation. Other admission at [facility]. OP:Dr. Damion Lynn MD [phone] Past medication trials: lithium (end stage renal disease), lamictal, olanzapine HOSPITAL COURSE On the unit, pt was admitted on a CV signed by HCP. Pt presented with constricted affect, poverty of thought. No overt paranoid delusions. No overt signs of psychosis. She reported difficulty ambulating, noted freezing of gait, shuffling gait, mask like facil features. She was seen by neurology and started on sinemet 25/100 1 tab BID at 8am and 1200. Her gait seemed to improve and she was able to tolerate PT sessions. Her affect was brighter, non labile. She was sleeping through the night. She was visible on the unit. No SI/HI. No psychosis nor overt delusions. No signs of aggression towards self or others. Pt was awaiting transfer to [facility]. Routine labs CMP and tacrolimus level were checked on 11/18. K came back high at 7, increase in Cr 4. Prior to transfer to medical floor, pt was given lokelma 10gm po, Lispro 5 units through IV and glucose 15gm. Stat EKG showed widening of QRS complex, no sine wave. Transferred to medicine for treatment of hyperkalemia. Status at Discharge Cognitive/behavioral status at discharge: Psychiatrically stable and cleared. No SI/HI. No psychosis nor delusions. Alert, oriented to place, situation, month and year. Functional status at discharge: wheelchair bound Overall status at discharge: patient is progressing back to baseline Time Spent with Patient Time attestation: Total time managing care of this patient today __45__ minutes. Time spent: Greater than 30 minutes Discharge Plan Discharge Anticipated Discharge Date/Time: 11/18/24 10:06 Patient Disposition: Xfer Acute Care Hospital Discharge Diagnosis: Schizoaffective disorder Major Neurocognitive Disorder Discharge Medications: New olanzapine 10 mg Tablet 10 mg PO BEDTIME Qty: 0 0RF levothyroxine 50 mcg Tablet 50 mcg PO DAILY@0600 Qty: 0 0RF tacrolimus 1 mg Capsule 2 mg PO DAILY Qty: 0 0RF tacrolimus 1 mg Capsule 1 mg PO BEDTIME Qty: 0 0RF Discontinued Tylenol 1,000 mg PO TID albuterol 2.5 mg inhalation QID PRN (Reason: SOB) heparin, porcine (PF) 5,000 unit subcut TID lamotrigine 200 mg PO BID levothyroxine 50 mcg PO DAILY olanzapine 10 mg PO BEDTIME olanzapine 2.5 mg PO TID PRN (Reason: Anxiety) tacrolimus 2 mg PO DAILY tacrolimus 1 mg PO BEDTIME No Action loperamide 2 mg capsule 2 mg PO QID PRN (Reason: diarrhea) hydrocortisone acetate 25 mg suppository 25 mg [place] BID vitamin B complex Capsule 1 cap PO DAILY carbidopa-levodopa 25-100 mg tablet 1 tab PO BID lamotrigine 200 mg tablet 200 mg PO BID albuterol sulfate 90 mcg/actuation HFA aerosol inhaler 2 inh inhalation Q6H PRN (Reason: Shortness Of Breath) albuterol sulfate 2.5 mg /3 mL (0.083 %) Solution For Nebulization 2.5 mg INHALATION QID PRN (Reason: Shortness Of Breath Or Wheezing) trazodone 50 mg Tablet 25 mg PO BEDTIME PRN (Reason: Insomnia) olanzapine 2.5 mg Tablet 2.5 mg PO TID PRN (Reason: Agitation) Discharge Orders: Discharge Order (Routine); Ordered 11/18/24 Ordered By: Roxanne Whitt Diet: Regular diet Activity on Discharge: Use cane or walker Stand Alone Forms: Patient Portal Discharge page Print Language: Syriac Care Plan Goals: medical transferred Health Concerns: medical transferred Plan of Treatment: medical transferred Assessment: medical transferred Discharge Date/Time: 11/18/24 11:38
[2024-11-18] MEDS: Sodium Zirconium Cyclosilicate 10 GM POWD.PACK PO (10:36)
--- NOTE | 2024-11-18 11:40 | PC.NURSE ---
Addendum entered by Nimisha Hannah RN 11/19/24 10:32: Prior to transport per TERRA Helton's Lm verbal order 5 units Lispro was given IVP via port in her left forearm even though the order read sub q. Original Note: Due to high Potassium, creatinine and magnesium levels today , the patient was transferred to our ED 11 at 1140. Prior to transport 5 units Lispro were given IVP via IV port in her left forearm #22 gauge inserted today at 1115. One tube of Glucose Gel 15gm given PO also at that time. Patient is alert and oriented and aware of discharge to the ED for further medical care.
--- NOTE | 2024-11-18 11:56 | PC.NURSE ---
All belongings sent with patient to ED, including phone.
--- NOTE | 2024-11-18 11:56 | PM.CNNEP ---
History of Present Illness Reason for Consult Consult date: 11/18/24 Chief Complaint Chief complaint: Bipolar 1 disorder, with psychotic features History of Present Illness Narrative: Patient is a 74 y/o female with a medical history of s/p renal and liver transplant in 2010 on tacrolimus (ESRD 2/2 lithium toxicity, end stage liver disease secondary to primary sclerosing cholangitis), ulcerative colitis s/p proctocolectomy with ostomy in place, hypothyroidism, HTN, schizoaffective disorder, bipolar type. She was admitted to the [facility] floor for management of paranoia on 11/04. 11/04 labs showed creatinine of 2.5, electrolytes within normal limits. 11/18 creatinine 4.13, BUN 133, sodium 131, potassium 7.0, serum C02 18, magnesium 3.6, phosphorous 6.1. LFTs within normal limits. ECG without arrhythmia patient reports she has been nauseated in the evenings for the past 4-5 days. She also reports ongoing tremor, states this is not new/changed. She also notes though she is voiding urine, she feels this is only in small amounts- she cannot recall the last time she voided, but thinks within the last few hours. She denies chest pain, shortness of breath, pruritus, muscle cramping, vomiting, lower extremity swelling. She has a RUE AV fistula that she reports has never been used. She requests that her [facility] transplant specialist Dr Salazar be contacted. Review of Systems Constitutional: Reports fatigue Cardiovascular: Denies chest pain, Denies leg edema, Denies lightheadedness and Denies dyspnea Respiratory: Denies cough and Denies dyspnea Gastrointestinal: Denies abdominal pain, Denies diarrhea, Reports nausea and Denies vomiting Genitourinary: Denies hematuria, Denies difficulty voiding and Denies dysuria Comments: reports urinating in small amounts Musculoskeletal: Denies muscle cramps Skin/Breast: Denies rash Comments: reports ongoing upper extremity tremor remains unchanged. Endocrine: Reports fatigue PMFSH Past Medical History Medical History (Updated 11/11/24 @ 09:23 by Chris Burger MD) Bipolar 1 disorder HTN (hypertension) Hypothyroidism Ulcerative colitis Surgical History Surgical History (Updated 11/04/24 @ 13:32 by TERRA Licona) S/P kidney transplant S/P liver transplant Social History Social History Household Members: None Housing: House Do you presently have visiting nurse or other home services: Yes (has home services once a week) Comment: 5 min checks Patient Tobacco Use Status: Former Tobacco user service: No Sexual orientation: Straight/Heterosexual Meds Allergies Allergy/AdvReac Type Severity Reaction Status Date / Time aspirin Allergy Unknown Verified 11/03/24 19:49 lithium AdvReac Severe kidney Verified 11/05/24 10:08 disease NSAIDS (Non-Steroidal AdvReac 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 Medications: Current Medications Al Hydroxide/Mg Hydroxide (Magnesium Hydrox/Alum Hydrox 30 Ml Oral.Susp) 30 ml PO Q6H PRN PRN Reason: Heartburn/Nausea Last Admin: 11/15/24 20:53 Dose: 30 ml Albuterol Sulfate (Albuterol Sulfate (0.083%) 2.5 Mg/3 Ml Vial.Neb) 2.5 mg INHALE QID PRN PRN Reason: Shortness of Breath Carbidopa/Levodopa (Carbidopa/Levodopa 25/100 Tablet) 1 tab PO BID@0800,1200 [facility] Last Admin: 11/18/24 09:08 Dose: 1 tab Sodium Bicarbonate 100 meq/ (Sodium Chloride) 1,200 mls @ 80 mls/hr IV .Q15H [facility] Lamotrigine (Lamotrigine 100 Mg Tablet) 200 mg PO BID [facility] Last Admin: 11/18/24 09:08 Dose: 200 mg Levothyroxine Sodium (Levothyroxine Sodium 50 Mcg Tablet) 50 mcg PO DAILY@0600 [facility] Last Admin: 11/18/24 05:22 Dose: 50 mcg Magnesium Hydroxide (Milk Of Magnesia 30 Ml Oral.Susp) 30 ml PO DAILY PRN PRN Reason: Constipation Nicotine Polacrilex (Nicotine Polacrilex 2 Mg Gum) 4 mg BUCCAL Q2H PRN PRN Reason: Nicotine Cravings Olanzapine (Olanzapine 2.5 Mg Tablet) 2.5 mg PO TID PRN PRN Reason: agitation Last Admin: 11/04/24 13:03 Dose: 2.5 mg Olanzapine (Olanzapine 10 Mg Tablet) 10 mg PO BEDTIME DIONNE Last Admin: 11/17/24 20:09 Dose: 10 mg Ondansetron HCl (Ondansetron Odt 4 Mg Tab.Rapdis) 4 mg TRANSLINGU Q6H PRN PRN Reason: Nausea and Vomiting Last Admin: 11/17/24 20:41 Dose: 4 mg Tacrolimus (Tacrolimus 1 Mg Capsule) 2 mg PO DAILY DIONNE Last Admin: 11/18/24 09:08 Dose: 2 mg Tacrolimus (Tacrolimus 1 Mg Capsule) 1 mg PO BEDTIME DIONNE Last Admin: 11/17/24 20:09 Dose: 1 mg Trazodone HCl (Trazodone Hcl 25 Mg Halftab) 25 mg PO BEDTIME MRX1 PRN PRN Reason: Insomnia Last Admin: 11/11/24 00:34 Dose: 25 mg Physical Exam Vital Signs: Last Vital Signs Temp 96.9 F 11/18/24 08:00 Pulse 70 11/18/24 08:00 Resp 14 11/18/24 08:00 BP 101/71 11/18/24 08:00 Pulse Ox 97 11/18/24 08:00 O2 Del Method Room Air 11/18/24 08:00 BMI result Body Mass Index 22.9 Const General: no acute distress, alert and awake Orientation/consciousness: oriented to person and oriented to place Resp Effort & Inspection: normal respiratory effort and able to speak in complete sentences Auscultation: clear to auscultation bilaterally Cardio Jugular venous distension: no JVD Rate: regular rate Rhythm: regular rhythm Heart sounds: S1 normal heart sound present and S2 normal heart sound present GI Palpation (GI): Soft to palpation and nontender General: Yes no CVA tenderness Back/Spine/Pelvis Back: no CVA tenderness Skin Rashes: no rashes Neuro General: oriented to person and oriented to place Extrem General: No edema Results Lab Results 11/18/24 09:06 Lab results: Chemistry 11/18/24 09:06 Sodium 131 L Potassium 7.0 H* D Carbon Dioxide 18 L BUN 133 H Creatinine 4.13 H* Calcium 10.1 Phosphorus 6.1 H Procedures Date of Service Date of Service: 11/18/24
[2024-11-19 14:48] LABS: Tacrolimus Prograf 4.3 mcg/L
[2024-11-23 08:10] LABS: Glucose, Whole Blood 59 mg/dL (60-115)
== END 2024-11-18 11:38 | disposition short-term general hospital (02) | DRG 885 ==
PROVIDERS: Psychiatry & Neurology Psychiatry; Social Worker; Admitting Provider Psychiatry & Neurology Psychiatry; Visit Provider Psychiatry & Neurology Psychiatry
DX: F25.0 Schizoaffective disorder, bipolar type (principal); T82.868A Thrombosis due to vascular prosthetic devices, implants and grafts, initial encounter; Z94.0 Kidney transplant status; Z94.4 Liver transplant status; G20.C Parkinsonism, unspecified; F02.80 Dementia in other diseases classified elsewhere, unspecified severity, without behavioral disturbance, psychotic disturbance, mood disturbance, and anxiety; G31.9 Degenerative disease of nervous system, unspecified; Y83.8 Other surgical procedures as the cause of abnormal reaction of the patient, or of later complication, without mention of misadventure at the time of the procedure; E03.9 Hypothyroidism, unspecified; Z93.3 Colostomy status; Z87.891 Personal history of nicotine dependence; Z79.621 Long term (current) use of calcineurin inhibitor; Z79.890 Hormone replacement therapy; Z79.899 Other long term (current) drug therapy
CPT/HCPCS: 36415; 76775; 80053; 80061; 80197; 82947; 83036; 83735; 84100; 84443; 93005; 97110; 97116; 97162; 97530

== ENCOUNTER 2024-11-03 18:21 | Outpatient (BNV) | payer MEDICARE, SELFPAY | END 2024-11-18 12:49 | PROVIDERS: Admitting Provider Psychiatry & Neurology Psychiatry; Visit Provider Radiology Diagnostic Radiology | DX: E87.5 Hyperkalemia (principal) | CPT/HCPCS: 76775 ==

== ENCOUNTER → 2024-11-03 18:21 | Outpatient (BNV) | payer MEDICARE, SELFPAY | PROVIDERS: Admitting Provider Psychiatry & Neurology Psychiatry; Visit Provider Social Worker | DX: F25.0 Schizoaffective disorder, bipolar type (principal) | CPT/HCPCS: 90792; 99231; 99232 ==

== ENCOUNTER → 2024-11-03 18:21 | Outpatient (BNV) | payer MEDICARE, SELFPAY | PROVIDERS: Admitting Provider Psychiatry & Neurology Psychiatry; Visit Provider Student in an Organized Health Care Education/Training Program | DX: Z00.8 Encounter for other general examination (principal) | CPT/HCPCS: 99222 ==

== ENCOUNTER → 2024-11-03 18:21 | Outpatient (BNV) | payer MEDICARE, SELFPAY | PROVIDERS: Admitting Provider Psychiatry & Neurology Psychiatry; Visit Provider Psychiatry & Neurology Neurology | DX: R26.89 Other abnormalities of gait and mobility (principal) | CPT/HCPCS: 99222 ==

== ENCOUNTER 2024-11-18 13:06 | Inpatient (IN) | payer MEDICARE, SELFPAY ==
--- NOTE | 2024-11-18 11:24 | P.HPHOSP_ITS ---
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 Pt was psychiatrically cleared for discharge and set to go to [facility] either today or tomorrow. Routine labs were drawn and were significant for potassium 7.0, BUN 133, creatinine 4.13 (baseline 2.0-2.5), sodium 131, phosphorus 6.1, and magnesium of 3.6. EKG obtained and significant for tall peaked T-waves in inferior lateral leads with QTC of 472. Pt has been largely asymptomatic, though complains of some nausea and feeling ?sick to my stomach? after eating. Denies abdominal pain. No vomiting or diarrhea. Denies any change to bowel or bladder habits. Denies chest pain/pressure, palpitations. No SOB or difficulty breathing. Pt will be brought to the medical floor for treatment and further ev aluation of multiple electrolyte abnormalities including hyperkalemia in the setting of AZEEM on CKD. Review of Systems Review of Systems: Negative except for that which is stated in the HPI. [facility] Medical History (Updated 11/18/24 @ 13:35 by TERRA Licona) Bipolar 1 disorder HTN (hypertension) Hypothyroidism Ulcerative colitis Surgical History S/P kidney transplant S/P liver transplant Social History Household Members: None Housing: House Do you presently have visiting nurse or other home services: Yes Comment: 5 min checks Patient Tobacco Use Status: Former Tobacco user Use of substances other than those prescribed or required for medical reasons: No Advance Directives: No Advance Directives Information Provided: Yes Advance Directives on File: Yes Advance Directives Date on File: 11/18/24 Do you have a plan to hurt others: No Plan Recently lost weight without trying: No Patient : No service: No Sexual orientation: Straight/Heterosexual Meds Allergies Allergy/AdvReac Type Severity Reaction Status Date / Time aspirin Allergy Unknown Verified 11/03/24 19:49 lithium AdvReac Severe kidney Verified 11/05/24 10:08 disease NSAIDS (Non-Steroidal AdvReac 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 Medications: Current Medications Sodium Chloride (Ns) 1,000 mls @ 100 mls/hr IVCONT .Q10H DIONNE Calcium Gluconate (Calcium Gluconate) 2 gm in 100 mls @ 50 mls/hr IV ONCE ONE Stop: 11/18/24 12:38 Physical Exam Vital Signs and Narrative: General: AOx3, no acute distress Resp: CTA bilaterally CVS: S1, S2, RRR, +murmur GI: +BS, NT, no distention Skin: Warm, dry Neuro: Cranial nerves II-XII grossly intact bilaterally. Motor grossly intact bilaterally Extremities: No edema. Right upper extremity with enlarged fistula. 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 Routine discharge lab work indicated AZEEM as well as numerous electrolyte abnormalities including hyperkalemia. Pt has been brought to the medical floor for further management and monitoring. AZEEM on CKD Creatinine 4.13, baseline 2.0-2.5 Pt with ESRD secondary to lithium toxicity S/p kidney transplant in 2010, follows with [facility] Pt given 500 mL NS bolus, placed on bicarb drip half NS Nephrology consult Low potassium and phosphorus diet Continue tacrolimus Follow creatinine Hyperkalemia Patient's potassium 7.0 EKG showing tall peaked T-waves in inferiorolateral leads Pt largely asymptomatic, though complains of some nausea We will give Lokelma 10 g, 5 units insulin, dextrose 25 g, calcium gluconate, al buterol Trend potassium Monitor on telemetry Hyponatremia Sodium 131 Pt receiving IVF Follow sodium Hyperphosphatemia Phosphorus 6.1 In the setting of above Treat as above Trend phosphorus AV fistula of right upper extremity Pt reports fistula placed in 2010, never used Appears enlarged likely secondary to thrombosis from lack of use Pt asymptomatic: Denies any significant pain or discomfort Contacted vascular surgery who did not think any acute intervention necessary at this time Should follow up outpatient with vascular surgery for elective procedure to remove thrombosis End-stage liver disease Secondary to primary sclerosing cholangitis S/p liver transplant in 2010 Continue tacrolimus Follow up outpatient with [facility] Parkinsonism Pt with resting tremors, primarily right-sided Seen by Neurology who recommended trial of Sinemet 25/100 t.i.d. Asthma Not in acute exacerbation Continue home rescue inhaler Hypothyroidism Continue levothyroxine Mood disorder Pt has been psychiatrically cleared for discharge Continue olanzapine DNR/DNI Attending:?Dr. Hathaway DVT Prophylaxis: Heparin Pt will require a hospitalization of at least two nights for treatment of?AZEEM on CKD and various electrolyte abnormalities most significant for hyperkalemia with EKG changes. Pt will require hospital level care for close monitoring of cardiac function, trending labs, and electrolyte correction as well as specialist consultation with Nephrology. Quality Stroke Does the patient have a stroke diagnosis?: No VTE Prior VTE?: No VTE Risk Level:: Medical - moderate - high VTE Device Contraindication: Treatment Not Indicated VTE Drug Contraindication: N/A - Med Ordered
[2024-11-18] MEDS: Albuterol Sulfate 7.5 MG, Albuterol Sulfate (0.083%) 2.5 MG 10 MG INHALE (12:21)
[2024-11-18 12:25] VITALS: PULSE 79; RESP 18; O2SAT 96
[2024-11-18 12:30] VITALS: BP 103/55; PULSE 83; RESP 14; TEMP 36; O2SAT 97
--- NOTE | 2024-11-18 12:46 | P.CONNP_ITS ---
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 She was admitted to the [facility] floor for management of paranoia on 11/04. 11/04 labs showed creatinine of 2.5, electrolytes within normal limits. 11/18 creatinine 4.13, BUN 133, sodium 131, potassium 7.0, serum C02 18, magnesium 3.6, phosphorous 6.1. LFTs within normal limits. ECG without arrhythmia patient reports she has been nauseated in the evenings for the past 4-5 days. She also reports ongoing tremor, states this is not new/changed. She also notes though she is voiding urine, she feels this is only in small amounts- she cannot recall the last time she voided, but thinks within the last few hours. She denies chest pain, shortness of breath, pruritus, muscle cramping, vomiting, lower extremity swelling. She has a RUE AV fistula that she reports has never been used. She requests that her [facility] transplant specialist Dr Salazar be contacted. Review of Systems Constitutional: Reports fatigue Cardiovascular: Denies chest pain, Denies leg edema, Denies lightheadedness and Denies dyspnea Respiratory: Denies dyspnea Gastrointestinal: Denies abdominal pain, Denies diarrhea, Reports nausea and Denies vomiting Genitourinary: Denies hematuria, Denies difficulty voiding, Denies dysuria and Denies flank pain Comments: reports voiding is reduced. Musculoskeletal: Denies muscle cramps Skin/Breast: Reports rash Comments: reports ongoing upper extremity tremor remains unchanged. Endocrine: Reports fatigue PMFSH Past Medical History Medical History (Updated 11/18/24 @ 12:54 by Beena Douglas DNP, PATIENT OMBUDSPERSON-BC) Bipolar 1 disorder HTN (hypertension) Hypothyroidism Ulcerative colitis Surgical History Surgical History (Updated 11/18/24 @ 12:54 by Beena Douglas DNP, PATIENT OMBUDSPERSON-BC) S/P kidney transplant S/P liver transplant Social History Social History Household Members: None Housing: House Do you presently have visiting nurse or other home services: Yes (has home services once a week) Comment: 5 min checks Patient Tobacco Use Status: Former Tobacco user service: No Sexual orientation: Straight/Heterosexual Meds Allergies Allergy/AdvReac Type Severity Reaction Status Date / Time aspirin Allergy Unknown Verified 11/03/24 19:49 lithium AdvReac Severe kidney Verified 11/05/24 10:08 disease NSAIDS (Non-Steroidal AdvReac 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 Medications: Current Medications Heparin Sodium (Porcine) (Heparin Sodium,Porcine 5,000 Unit/Ml Vial) 5,000 unit SUBCUT Q12H DIONNE Sodium Bicarbonate 100 meq/ (Sodium Chloride) 1,000 mls @ 80 mls/hr IV .[id number] DIONNE Magnesium Hydroxide (Milk Of Magnesia 30 Ml Oral.Susp) 30 ml PO DAILY PRN PRN Reason: Constipation Melatonin (Melatonin 3 Mg Tablet) 6 mg PO BEDTIME PRN PRN Reason: Insomnia Sodium Chloride (0.9 % Sodium Chloride Flush 3 Ml Syringe) 3 ml IVFLUSH QSHIFT DIONNE Physical Exam Vital Signs: Last Vital Signs Pulse 79 11/18/24 12:25 Resp 18 11/18/24 12:25 Const General: no acute distress, alert and awake Orientation/consciousness: oriented to person and oriented to place Resp Effort & Inspection: normal respiratory effort and able to speak in complete sentences Auscultation: clear to auscultation bilaterally Cardio Jugular venous distension: no JVD Rate: regular rate Rhythm: regular rhythm Heart sounds: S1 normal heart sound present and S2 normal heart sound present GI Palpation (GI): Soft to palpation and nontender General: Yes no CVA tenderness Back/Spine/Pelvis Back: no CVA tenderness Skin Rashes: no rashes Neuro General: oriented to person and oriented to place Extrem General: No edema Assessment and Plan (1) Renal transplant recipient: Status: Acute (2) Renal failure: Qualifiers: Renal failure chronicity: acute Acute renal failure type: unspecified Qualified Code(s): N17.9 - Acute kidney failure, unspecified Status: Acute (3) Hyperkalemia: Status: Acute (4) Metabolic acidosis: Status: Acute (5) Hyponatremia: Status: Acute Plan Acute renal failure in renal transplant recipient lokelma 10mg x2 (ecg without concerning changes), will recheck potassium level half normal saline with bicarb at 80mL/hr for management of hyponatremia and acidosis Patient does have AC fistula in RUE for HD access with +thrill, +bruit I contacted [facility] transplant services who recommended patient be transferred to [facility] for inpatient care with her transplant team. Patient is on a waitlist for transfer to [facility]; unfortunately bed is currently unavailable so will continue management here on medical floor. Procedures Date of Service Date of Service: 11/18/24
[2024-11-18 12:52] VITALS: BMI 23.1
[2024-11-18] MEDS: Dextrose 50 % 25 GM/50 ML SYRINGE IVPUSH (13:01)
[2024-11-18] MEDS: SODIUM CHLORIDE 0.45% IV (13:59)
[2024-11-18] MEDS: SODIUM BICARBONATE IV (13:59)
[2024-11-18] MEDS: Heparin Sodium,Porcine 5,000 UNIT/ML VIAL 5000 UNIT SUBCUT (14:23)
[2024-11-18 14:25] LABS: Hematocrit 42.8 % (37.0-47.0); Hemoglobin 14.3 g/dl (12.0-16.0); Mean Corpuscular HGB Conc 33.4 g/dl (31.0-35.0); Mean Corpuscular Hemoglobin 30.3 pg (27.0-33.0); Mean Corpuscular Volume 90.7 fL (80.0-98.0); Mean Platelet Volume 8.8 fL (9.4-12.3); Platelet Count 489 X10*3/uL (160-400); Red Blood Count 4.72 X10*6/uL (4.20-5.50); Red Cell Distribution Width 15.7 % (11.0-16.0); White Blood Count 10.2 X10*3/uL (4.8-10.8)
[2024-11-18 14:31] LABS: Venous Blood Gas Refer to POC result
[2024-11-18 14:31] LABS: VBG Base Excess -8.2 mmol/L; VBG HCO3 17 mmol/L (22-26); VBG pCO2 38 mmHg; VBG pH 7.27 (7.32-7.43); VBG pO2 46 mmHg
[2024-11-18 14:39] LABS: Anion Gap 19 (12-20); Calcium 10.5 mg/dL (8.4-10.2); Carbon Dioxide 18 mmol/L (22-29); Chloride 101 mmol/L (96-108); Glucose Random 217 mg/dL (60-115); Potassium 5.9 mmol/L (3.3-5.1); Sodium 132 mmol/L (135-145)
[2024-11-18 14:40] LABS: Creatinine Clr Calc Pharmacy 10.5; Estimated Glomerular Filt Rate 10
[2024-11-18 14:49] LABS: Blood Urea Nitrogen 133 mg/dL (9-16)
--- NOTE | 2024-11-18 15:14 | PHA.MEDREC ---
Pharmacy Consult ? Medication Reconciliation Pharmacy has completed the medication reconciliation. Spoke with patient and she was able to confirm her medications. Patient confirmed she was still taking the Lamotrigine 200mg tab twice a day and Carbidopa-Levodopa twice a day but did not remember the dose of it at this time and stated she was filling those at [facility] in [facility]. I called the patients [facility] and they were able to confirm they had recent claims from 08/05/24 for the Lamotrigine 200mg tab for 90 days but states that script is now and cant be refilled and they have no claims for the Carbidopa-Levodopa being filled at their facility for that patient for at least 3 years.
[2024-11-18 15:18] LABS: Magnesium 3.5 mg/dL (1.6-2.6)
[2024-11-18] MEDS: Calcium Gluconate/NaCl,Iso-Osm 2 GM/100 ML PLAST..BAG IV (15:22)
[2024-11-18] MEDS: Sodium Zirconium Cyclosilicate 10 GM POWD.PACK PO ×2 (15:22→20:27)
--- OUTSIDE RECORDS SUMMARY | 2024-11-18 15:32 | XMS_ITS | Encounter Summary ---
Author Organization [facility] spital Address [address] [place] [address] Phone Care Team Providers Care Heavy Mobile Equipment Repairer Name Role Phone Jessica Rowell Primary Care Provider [phone] Jessica Rowell Unavailable [phone] Encounter Details Date Type Department Care Team (Latest Contact Info) Description 12/19/2023 Abstract Stacia Conversion ProviderYi MD [address] [place] [address] Social History Tobacco Use Types Packs/Day Years [...] on filedocumented in this encounter Care Teams Heavy Mobile Equipment Repairer Relationship Specialty Start Date End Date Jessica Rowell [address] [place] [address] PCP - General Internal Medicine 12/06/23 Jessica Rowell [address] [place] [address] PCP - Clinical PCP 02/11/19 documented as of this encounter
--- OUTSIDE RECORDS SUMMARY | 2024-11-18 15:32 | XMS_ITS | Clinical Summary ---
Author Organization [facility] Address [address] [place] [address] [place] [phone] Phone Care Team Providers Care Dough Mixer Name Role Phone Jessica Rowell MD Primary Care Provider + Encounters Date Type Department Care Team Description 09/08/2024 Telephone [facility] [address] [place] [address] Jessica Bose, Establish Care from Last 3 [...] Procedure Name Priority Date/Time Associated Diagnosis Comments MT ELECTROCARDIOGRAM, COMPLETE 08/30/2024 8:21 AM EST from Last 3 Months Results * MT ELECTROCARDIOGRAM, COMPLETE (08/30/2024 8:21 AM EST) 08/30/2024 8:21 AM EST Narrative [facility] - 08/30/2024 8:21 AM EST ? [facility] ?[address] ? [place] [address] ?Electrocardiograph Report ?Signed ? Patient: Candi Salgado ?? MR# [id number] ? : 1950 ?Acct:[id number] ? Age/Sex: 74 / F ?ADM Date: 08/29/24 ? Loc: ED ? Attending Dr: ? Ordering Physician: Jones Lee MD ?? Date of Service: 08/29/24 ?? Procedure(s): EKG 12 lead ?? Accession Number(s): [id number] ? cc: Jessica Rowell MD; Jones Lee [...] Procedure Note Matt Marie MD - 08/30/2024 [facility] [address] [place] [address] Electrocardiograph Report Signed Patient: Candi Salgado MR# [id number] : 8Acct:[id number] Age/Sex: 74 / F ADMDate: 08/29/24 Loc: ED Attending Dr: Ordering Physician: Jones Lee MD Date of Service: 08/29/24 Procedure(s): EKG 12 lead Accession Number(s): [id number] cc: Jessica Rowell MD; Jones Lee MD~ [...] in OV> 08/30/24 0821 Jones Lee MD [place] CARDIOVASCU LAR SYSTEM SERVICES [facility] from Last 3 Months [facility], Candi E Personal/Famil y Self [address] [place] [phone] [facility], Candi E Personal/Famil y Self [address] [place] [phone] [facility] Candi E Personal/Famil y Self [address] [place] [phone] [employer], Candi E Personal/Famil y Self [address] [place] [phone] [employer], Candi E Personal/Famil y Self [address] [place] [phone] [employer], Candi E Personal/Famil y Self [address] [place] [phone] [employer], Candi E Personal/Famil y Self [address] [place] [phone] [employer], Candi E Personal/Famil y Self [address] [place] [phone] [employer], Candi E Personal/Famil y Self [address] [place] [phone] Care Teams Dough Mixer Relationship Specialty Start Date End Date Jessica Rowell MD [address] [place] [address] [email or web address] PCP - General Internal Medicine 09/08/24 Additional Source Comments The information contained in this document represents components of the legal health record. It is not the complete legal health record.[facility]
--- OUTSIDE RECORDS SUMMARY | 2024-11-18 15:32 | XMS_ITS | Clinical Summary ---
Author Organization [facility] sp[facility] Address [address] [place] [address] Phone Care Team Providers Care Spectrographic Analyst Name Role Phone Jessica Rowell Primary Care Provider [phone] Jessica Rowell Unavailable [phone] Allergies Active Allergy Reactions Criticality Noted Date Comments Aspirin 05/28/2019 Reaction Type from PowerChart: Allergy; [place] 05/28/2019 Reaction Type from PowerChart: Allergy; Active [...] complete this topic Insurance [employer] DENTAL MEDICARE [facility] [employer] DENTAL MEDICARE [facility] Care Teams Spectrographic Analyst Relationship Specialty Start Date End Date Jessica Rowell [address] [place] [address] PCP - General Internal Medicine 12/06/23 Jessica Rowell [address] [place] [address] PCP - Clinical PCP 02/11/19
[2024-11-18 16:00] VITALS: BP 131/62; PULSE 84; RESP 18; TEMP 36.3; O2SAT 97
--- NOTE | 2024-11-18 16:44 | PHA.MEDREC ---
Pharmacy Consult ? Medication Reconciliation Pharmacy has completed the medication reconciliation. PATIENT WAS INPATIENT ON M5 AND TRANSFERRED TO MEDICAL FLOOR. MED REC CONTINUED BASED ON LAST ACTIVE MEDICATIONS.
[2024-11-18 19:51] LABS: Anion Gap 20 (12-20); Calcium 10.3 mg/dL (8.4-10.2); Carbon Dioxide 16 mmol/L (22-29); Chloride 102 mmol/L (96-108); Creatinine Clr Calc Pharmacy 11.1; Estimated Glomerular Filt Rate 11; Glucose Random 182 mg/dL (60-115); Potassium 5.6 mmol/L (3.3-5.1); Sodium 132 mmol/L (135-145)
[2024-11-18 19:56] VITALS: BP 139/66; PULSE 83; RESP 19; TEMP 36.2; O2SAT 95
[2024-11-18 20:01] LABS: Blood Urea Nitrogen 128 mg/dL (9-16)
[2024-11-18] MEDS: Tacrolimus 1 MG CAPSULE PO (20:27)
[2024-11-18] MEDS: Carbidopa/Levodopa 25/100 TABLET 1 TAB PO (20:28)
[2024-11-18] MEDS: OLANZapine 10 MG TABLET PO (20:28)
[2024-11-19] VITALS: BP 123/62; PULSE 73; RESP 18; TEMP 36.7; O2SAT 95
[2024-11-19] MEDS: SODIUM CHLORIDE 0.45% IV (02:30)
[2024-11-19] MEDS: SODIUM BICARBONATE IV (02:30)
[2024-11-19 03:23] VITALS: BP 128/59; PULSE 70; RESP 18; TEMP 36.4; O2SAT 97
[2024-11-19 05:45] VITALS: BMI 22.3
[2024-11-19] MEDS: Levothyroxine Sodium 50 MCG TABLET PO (06:01)
[2024-11-19 07:10] LABS: Anion Gap 14 (12-20); Blood Urea Nitrogen 117 mg/dL (9-16); Calcium 9.3 mg/dL (8.4-10.2); Carbon Dioxide 23 mmol/L (22-29); Chloride 103 mmol/L (96-108); Creatinine Clr Calc Pharmacy 13.7; Estimated Glomerular Filt Rate 14; Glucose Random 99 mg/dL (60-115); Magnesium 2.9 mg/dL (1.6-2.6); Phosphorus 5.1 mg/dL (2.7-4.5); Potassium 4.5 mmol/L (3.3-5.1); Sodium 135 mmol/L (135-145)
[2024-11-19 07:11] VITALS: BP 119/58; PULSE 68; RESP 16; TEMP 36.5; O2SAT 97
--- NOTE | 2024-11-19 08:15 | P.PNNP_ITS ---
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 She was admitted to the [facility] floor for management of paranoia on 11/04. 11/04 labs showed creatinine of 2.5, electrolytes within normal limits. 11/18 creatinine 4.13, BUN 133, sodium 131, potassium 7.0, serum C02 18, magnesium 3.6, phosphorous 6.1. LFTs within normal limits. ECG without arrhythmia 11/19 potassium 4.5, sodium 135, serum CO2 23, BUN 117, Creatinine down to 3.26 patient reports she has been nausea she has been having has resolved overnight. Reports she is urinating in larger amounts. Denies other changes/concerns. She denies chest pain, shortness of breath, pruritus, muscle cramping, nausea, vomiting, lower extremity swelling. She has a RUE AV fistula that she reports has never been used with +thrill, +bruit Physical Exam 2 Vital Signs: Vital Signs: Last Vital Signs Temp 97.7 F 11/19/24 07:11 Pulse 68 11/19/24 07:11 Resp 16 11/19/24 07:11 BP 119/58 L 11/19/24 07:11 Pulse Ox 97 11/19/24 07:11 O2 Del Method Room Air 11/19/24 07:11 BMI result Body Mass Index 22.3 Const: General: no acute distress, alert and awake O rientation/consciousness: oriented to person and oriented to place Resp: Effort & Inspection: normal respiratory effort Auscultation: clear to auscultation bilaterally Cardio: Jugular venous distension: no JVD Rate: regular rate Rhythm: r egular rhythm Heart sounds: S1 normal heart sound present and S2 normal heart sound present GI: Palpation (GI): Soft to palpation and nontender : General: Yes no CVA tenderness Back/Spine/Pelvis: Back: no CVA tenderness Skin: Rashes: no rashes Neuro: General: oriented to person and oriented to place Extrem: General: No edema Objective Data Labs 11/18/24 14:19 11/19/24 06:28 Labs: Laboratory Results - last 24 hr 11/18/24 11/18/24 11/18/24 14:19 14:25 19:03 WBC 10.2 RBC 4.72 Hgb 14.3 Hct 42.8 MCV 90.7 MCH 30.3 MCHC 33.4 RDW 15.7 Plt Count 489 H MPV 8.8 L Absolute Nucleated RBC 0.000 Nucleated RBC % (auto) 0.0 VBG pH 7.27 L VBG pCO2 38 VBG pO2 46 VBG HCO3 17 L VBG O2 Saturation 68.0 VBG Base Excess -8.2 Sodium 132 L 132 L Potassium 5.9 H 5.6 H Chloride 101 102 Carbon Dioxide 18 L 16 L Anion Gap 19 20 BUN 133 H 128 H Creatinine 4.28 H* 4.02 H* Estim Creat Clear Calc 10.5 11.1 Estimated GFR 10 11 Random Glucose 217 H 182 H Calcium 10.5 H 10.3 H Phosphorus Magnesium 3.5 H* 11/19/24 06:28 WBC RBC Hgb Hct MCV MCH MCHC RDW Plt Count MPV Absolute Nucleated RBC Nucleated RBC % (auto) VBG pH VBG pCO2 VBG pO2 VBG HCO3 VBG O2 Saturation VBG Base Excess Sodium 135 Potassium 4.5 Chloride 103 Carbon Dioxide 23 Anion Gap 14 BUN 117 H Creatinine 3.26 H Estim Creat Clear Calc 13.7 Estimated GFR 14 Random Glucose 99 Calcium 9.3 D Phosphorus 5.1 H Magnesium 2.9 H Procedures Date of Service Date of Service: 11/19/24 Assessment & Plan Assessment and plan (1) Acute kidney injury superimposed on CKD: Status: Acute (2) Metabolic acidosis: Status: Acute (3) Hyperkalemia: Status: Acute (4) Hyponatremia: Status: Acute (5) Renal transplant recipient: Status: Acute Plan AZEEM on CKD in renal transplant recipient secondary to hypoperfusion from dehydration - improving with fluid resuscitation. creatinine trending down with bicarb/fluids overnight hyponatremia has resolved hyperkalemia controlled with lokelma and improvement in renal function acidosis resolved with bicarbonate drip - discontinued bicarb drip, start normal saline at 80mL/hr patient is making more urine uremic symptoms resolved (nausea) recommend continued hydration, close monitoring of I&O recommend daily electrolye and renal function studies tacrolimus level pending continue supportive care, will continue to follow Discussed with Dr Headley Time Spent With Patient Time: Total time managing care of this patient today ____ minutes. Progress Note: Quality Stroke Does the patient have a stroke diagnosis?: No
[2024-11-19] MEDS: Heparin Sodium,Porcine 5,000 UNIT/ML VIAL 5000 UNIT SUBCUT (09:11)
[2024-11-19] MEDS: Carbidopa/Levodopa 25/100 TABLET 1 TAB PO (09:11)
[2024-11-19] MEDS: Tacrolimus 1 MG CAPSULE 2 MG PO (09:11)
[2024-11-19] MEDS: OLANZapine 2.5 MG TABLET PO (09:11)
[2024-11-19] MEDS: Multivitamin TABLET 1 TAB PO (09:11)
[2024-11-19] MEDS: 0.9 % Sodium Chloride Flush 3 ML SYRINGE IVFLUSH ×2 (09:13→15:14)
[2024-11-19 09:50] VITALS: BP 119/58; PULSE 68; O2SAT 97
[2024-11-19 11:24] VITALS: BP 122/58; PULSE 74; RESP 16; TEMP 36.5; O2SAT 94
--- NOTE | 2024-11-19 12:00 | P.PNIM_ITS ---
Subjective Subjective Date of Service: 11/19/24 Interval History: seen and evaluated this morning Feels better overall walking with PT Cr and K trending down no other events Review of Systems Review of Systems: Yes all other systems are reviewed and are negative Physical Exam 2 Vital Signs: Vital Signs: Last Vital Signs Temp 97.7 F 11/19/24 11:24 Pulse 74 11/19/24 11:24 Resp 16 11/19/24 11:24 BP 122/58 L 11/19/24 11:24 Pulse Ox 94 11/19/24 11:24 O2 Del Method Room Air 11/19/24 11:24 BMI result Body Mass Index 22.3 Const: Other: Constitutional : interactive, not in distress Cardiovascular : no JVP, no lower extremity edema Respiratory : bilateral chest movement, not in resp distress Gastrointestinal: soft, lax, Non tender Skin : Warm, Dry Neurological : Alert & oriented , No focal deficit Objective Data Active Medications Albuterol Sulfate (Albuterol Sulfate (0.083%) 2.5 Mg/3 Ml Vial.Neb) 2.5 mg INHALE QID PRN PRN Reason: Shortness Of Breath Or Wheezing Albuterol Sulfate (Albuterol Sulfate 90 Mcg 8 Gm Inhaler) 2 puff INHALE Q6H PRN PRN Reason: Shortness Of Breath Carbidopa/Levodopa (Carbidopa/Levodopa 25/100 Tablet) 1 tab PO BID [facility] Last Admin: 11/19/24 09:11 Dose: 1 tab Documented By: AN Heparin Sodium (Porcine) (Heparin Sodium,Porcine 5,000 Unit/Ml Vial) 5,000 unit SUBCUT BID [facility] Last Admin: 11/19/24 09:11 Dose: 5,000 unit Documented By: AN Sodium Bicarbonate 100 meq/ (Sodium Chloride) 1,000 mls @ 80 mls/hr IV .[id number] [facility] Last Admin: 11/19/24 02:30 Dose: 80 mls/hr Documented By: DORETHA Levothyroxine Sodium (Levothyroxine Sodium 50 Mcg Tablet) 50 mcg PO DAILY@0600 [facility] Last Admin: 11/19/24 06:01 Dose: 50 mcg Documented By: DORETHA Loperamide HCl (Loperamide Hcl 2 Mg Capsule) 2 mg PO QID PRN PRN Reason: diarrhea Magnesium Hydroxide (Milk Of Magnesia 30 Ml Oral.Susp) 30 ml PO DAILY PRN PRN Reason: Constipation Melatonin (Melatonin 3 Mg Tablet) 6 mg PO BEDTIME PRN PRN Reason: Insomnia Multivitamins/Vitamin C (Multivitamin Tablet) 1 tab PO DAILY [facility] Last Admin: 11/19/24 09:11 Dose: 1 tab Documented By: AN Olanzapine (Olanzapine 2.5 Mg Tablet) 2.5 mg PO TID PRN PRN Reason: Agitation Last Admin: 11/19/24 09:11 Dose: 2.5 mg Documented By: AN Olanzapine (Olanzapine 10 Mg Tablet) 10 mg PO BEDTIME [facility] Last Admin: 11/18/24 20:28 Dose: 10 mg Documented By: DORETHA Sodium Chloride (0.9 % Sodium Chloride Flush 3 Ml Syringe) 3 ml IVFLUSH QSHIFT [facility] Last Admin: 11/19/24 09:13 Dose: 3 ml Documented By: AN Tacrolimus (Tacrolimus 1 Mg Capsule) 1 mg PO BEDTIME [facility] Last Admin: 11/18/24 20:27 Dose: 1 mg Documented By: DORETHA Tacrolimus (Tacrolimus 1 Mg Capsule) 2 mg PO DAILY [facility] Last Admin: 11/19/24 09:11 Dose: 2 mg Documented By: AN Trazodone HCl (Trazodone Hcl 25 Mg Halftab) 25 mg PO BEDTIME PRN PRN Reason: Insomnia Labs 11/18/24 14:19 11/19/24 06:28 Labs: Laboratory Results - last 24 hr 11/18/24 11/18/24 11/18/24 14:19 14:25 19:03 MCV 90.7 MCH 30.3 MCHC 33.4 RDW 15.7 Plt Count 489 H MPV 8.8 L Absolute Nucleated RBC 0.000 Nucleated RBC % (auto) 0.0 VBG pH 7.27 L VBG pCO2 38 VBG pO2 46 VBG HCO3 17 L VBG O2 Saturation 68.0 VBG Base Excess -8.2 Anion Gap 19 20 Estim Creat Clear Calc 10.5 11.1 Estimated GFR 10 11 Random Glucose 217 H 182 H Calcium 10.5 H 10.3 H Phosphorus Magnesium 3.5 H* 11/19/24 06:28 MCV MCH MCHC RDW Plt Count MPV Absolute Nucleated RBC Nucleated RBC % (auto) VBG pH VBG pCO2 VBG pO2 VBG HCO3 VBG O2 Saturation VBG Base Excess Anion Gap 14 Estim Creat Clear Calc 13.7 Estimated GFR 14 Random Glucose 99 Calcium 9.3 D Phosphorus 5.1 H Magnesium 2.9 H Assessment and Plan (1) Acute kidney injury superimposed on CKD: Status: Acute (2) Hyponatremia: Status: Acute (3) Metabolic acidosis: Status: Acute (4) Hyperkalemia: Status: Acute (5) Renal transplant recipient: Status: Acute Plan Pt is a 74-year-old female with a PMH significant for?end-stage liver disease secondary to primary sclerosing cholangitis, ESRD secondary to long-term lithium toxicity, s/p kidney and liver transplant in 2010 on tacrolimus (follows with [facility]), ulcerative colitis s/p proctocolectomy with ostomy in place,?hypothyroidism, HTN, and bipolar 1 disorder who is admitted to [facility] on 11/04/2024 for increasing agitation and paranoia. Routine discharge lab work indicated AZEEM as well as numerous electrolyte abnormalities including hyperkalemia. Pt has been brought to the medical floor for further management and monitoring. AZEEM on CKD complicated with metabolic acidosis Creatinine improving 3.2, baseline 2.0-2.5 Pt with ESRD secondary to lithium toxicity S/p kidney transplant in 2010, follows with [facility] Nephrology following Low potassium and phosphorus diet IV half NS w sodium bicarb Continue tacrolimus (level pending) Follow creatinine Plan to transfer to [facility] once bed is available acute Hyperkalemia resolved tall peaked T-waves continue Lokelma 10 g Monitor on telemetry acute Hyponatremia improved to 135 Follow sodium Hyperphosphatemia Phosphorus still at 6.1 Treat as above Trend phosphorus AV fistula of right upper extremity Pt reports fistula placed in 2010, never used Appears enlarged likely secondary to thrombosis from lack of use Pt asymptomatic: Denies any significant pain or discomfort Contacted vascular surgery who did not think any acute intervention necessary at this time Should follow up outpatient with vascular surgery for elective procedure to remove thrombosis End-stage liver disease Secondary to primary sclerosing cholangitis S/p liver transplant in 2010 Continue tacrolimus Follow up outpatient with [facility] Parkinsonism Pt with resting tremors, primarily right-sided Seen by Neurology who recommended trial of Sinemet 25/100 t.i.d. Asthma Not in acute exacerbation Continue home rescue inhaler Hypothyroidism Continue levothyroxine Mood disorder Pt has been psychiatrically cleared for discharge Continue olanzapine DNR/DNI DVT Prophylaxis: Heparin Pt will require a hospitalization overnight for treatment of?AZEEM on CKD and electrolyte abnormalities. she will require hospital level care for close monitoring of cardiac function, trending labs, and electrolyte correction as well as specialist consultation with Nephrology. Quality Stroke Does the patient have a stroke diagnosis?: No VTE Prior VTE?: No VTE Risk Level:: Medical - moderate - high VTE Device Contraindication: Treatment Not Indicated VTE Drug Contraindication: N/A - Med Ordered
--- NOTE | 2024-11-19 12:38 | MHC.CM.PN ---
IMM 11/19/24, Pt lives alone and has services from [facility] elder services. Her son Blaise is her HCP, she has the document at home. For DME, she has a walker, and shower chair. She was on the [facility] unit prior to coming here. DCP is for her to transfer to Acute Care when bed is available, to [facility]
[2024-11-19] MEDS: 0.9 % Sodium Chloride 1,000 ML 80 ML IVCONT (15:12)
[2024-11-19 15:26] VITALS: BP 127/59; PULSE 78; RESP 16; TEMP 36.6; O2SAT 94
--- NOTE | 2024-11-19 16:30 | PM.DS ---
DS: Providers Provider Date of Service: 11/19/24 Date of admission: 11/18/24 13:06 Date of discharge: 11/19/24 Primary care physician: Unknown Physician Consults: 11/18/24 10:35 Consult to Nephrology Routine Consulting Provider: [facility] Reason for consultation: S/P liver and renal transplant, k+ 7.0 and cr 4.13, from [facility] DS: Diagnosis Discharge Diagnosis (1) Acute kidney injury superimposed on CKD: Status: Acute (2) Metabolic acidosis: Status: Acute (3) Hyperkalemia: Status: Acute (4) Hyponatremia: Status: Acute (5) Renal transplant recipient: Status: Acute DS: Summary Hospital Course Hospital Course: Admission note HPI Pt is a 74-year-old female with a PMH significant for?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 Pt was psychiatrically cleared for discharge and set to go to [facility] at [facility] either today or tomorrow. Routine labs were drawn and were significant for potassium 7.0, BUN 133, creatinine 4.13 (baseline 2.0-2.5), sodium 131, phosphorus 6.1, and magnesium of 3.6. EKG obtained and significant for tall peaked T-waves in inferior lateral leads with QTC of 472. Pt has been largely asymptomatic, though complains of some nausea and feeling ?sick to my stomach? after eating. Denies abdominal pain. No vomiting or diarrhea. Denies any change to bowel or bladder habits. Denies chest pain/pressure, palpitations. No SOB or difficulty breathing. Pt will be brought to the medical floor for treatment and further evaluation of multiple electrolyte abnormalities including hyperkalemia in the setting of AZEEM on CKD. Hospital course # AZEEM on CKD3 complicated with metabolic acidosis Creatinine of 4.28 from baseline 2.0-2.5 on presentation with metabolic acidosis and low Bicarb. She developed ESRD secondary to lithium toxicity and had kidney transplant in 2010, follows with [facility]. Nephrology following and recommended half normal saline with sodium bicarb drip with good tolerance as Creatinine improved to 3.26 overnight with resolution of metabolic acidosis. IV fluid changed to normal saline. She was placed on Low potassium and phosphorus diet. Continue tacrolimus as level were low at 4.3. # acute Hyperkalemia with hyperacute peaked T-waves on EKG. K of 7 at time of evaluation requiring urgeny management with Calcium gluconate and 20 of Lokelma. Resolved after potassium level went down to normal 4.5. Monitored on Telemetry. # acute Hyponatremia. improved to 135 from 132 on presentation, # Hyperphosphatemia, Phosphorus still at 6.1. Treat with fluids and low phosphorus diet # AV fistula of right upper extremity. fistula placed in 2010, never used. Appears enlarged likely secondary to thrombosis from lack of use. Pt asymptomatic: Denies any significant pain or discomfort. Contacted vascular surgery who did not think any acute intervention necessary at this time. Should follow up outpatient with vascular surgery for elective procedure to remove thrombosis # End-stage liver disease Secondary to primary sclerosing cholangitis. S/p liver transplant in 2010.Continue tacrolimus. Follow up outpatient with [facility]. Discharge plan Transfer to [facility] Time Attestation Discharge Coordination Time (in mins): 42 Quality: Safe Use of Opioids Does Pt have an Active Cancer Diagnosis on the Problem List?: No Quality: Stroke Does the patient have a stroke diagnosis?: No Physical Exam Vital Signs: Vital Signs: Last Vital Signs Temp 97.9 F 11/19/24 15:26 Pulse 78 11/19/24 15:26 Resp 16 11/19/24 15:26 BP 127/59 L 11/19/24 15:26 Pulse Ox 94 11/19/24 15:26 O2 Del Method Room Air 11/19/24 15:26 BMI result Body Mass Index 22.3 Const: Other: Constitutional : interactive, not in distress Cardiovascular : no JVP, no lower extremity edema Respiratory : bilateral chest movement, not in resp distress Gastrointestinal: soft, lax, Non tender Skin : Warm, Dry Vascular: Right arm fistula with thrill Neurological : Alert & oriented , No focal deficit DS: Data Data Completed and Pending Labs on day of discharge: Laboratory Results - last 24 hr 11/18/24 11/19/24 19:03 06:28 Sodium 132 L 135 Potassium 5.6 H 4.5 Chloride 102 103 Carbon Dioxide 16 L 23 Anion Gap 20 14 BUN 128 H 117 H Creatinine 4.02 H* 3.26 H Estim Creat Clear Calc 11.1 13.7 Estimated GFR 11 14 Random Glucose 182 H 99 Calcium 10.3 H 9.3 D Phosphorus 5.1 H Magnesium 2.9 H Imaging US - abdomen: Radiologist's impression: IMPRESSION: Atrophic [place] kidneys demonstrating increased echotexture and poor corticomedullary differentiation. Unremarkable appearing transplant kidney in the left lower quadrant. Discharge Plan Discharge Anticipated Discharge Date/Time: 11/19/24 16:29 Patient Disposition: [facility] Discharge Diagnosis: Acute renal failure Referrals: Physician,Unknown J [Primary Care Provider] - 1 Week Discharge Medications: Continued olanzapine 10 mg Tablet 10 mg PO BEDTIME Qty: 0 0RF levothyroxine 50 mcg Tablet 50 mcg PO DAILY@0600 Qty: 0 0RF tacrolimus 1 mg Capsule 2 mg PO DAILY Qty: 0 0RF tacrolimus 1 mg Capsule 1 mg PO BEDTIME Qty: 0 0RF loperamide 2 mg capsule 2 mg PO QID PRN (Reason: diarrhea) hydrocortisone acetate 25 mg suppository 25 mg W[place] BID vitamin B complex Capsule 1 cap PO DAILY carbidopa-levodopa 25-100 mg tablet 1 tab PO BID lamotrigine 200 mg tablet 200 mg PO BID albuterol sulfate 90 mcg/actuation HFA aerosol inhaler 2 inh inhalation Q6H PRN (Reason: Shortness Of Breath) albuterol sulfate 2.5 mg /3 mL (0.083 %) Solution For Nebulization 2.5 mg INHALATION QID PRN (Reason: Shortness Of Breath Or Wheezing) trazodone 50 mg Tablet 25 mg PO BEDTIME PRN (Reason: Insomnia) olanzapine 2.5 mg Tablet 2.5 mg PO TID PRN (Reason: Agitation) Discharge Orders: Discharge Order (Routine); Ordered 11/19/24 Ordered By: Timmy Hathaway Diet: Advance to usual diet Activity on Discharge: As tolerated Stand Alone Forms: Patient Portal Discharge page Print Language: Citizen Of [place] Care Plan Goals: Transfer to [facility] Concerns: Renal failure Plan of Treatment: supportive Assessment: as above
--- NOTE | 2024-11-19 18:13 | PC.NURSE ---
Report given to PAPITO Hall assuming care of patient upon arrival to [facility] in [place]. [address] Room 731-A. [phone].
[2024-11-22 12:48] LABS: Glucose, Whole Blood 260 mg/dL (60-115)
== END 2024-11-19 19:05 | disposition short-term general hospital (02) | DRG 699 ==
PROVIDERS: Nurse Practitioner Family; Student in an Organized Health Care Education/Training Program; Admitting Provider Internal Medicine; Visit Provider Student in an Organized Health Care Education/Training Program
DX: T86.12 Kidney transplant failure (principal); E87.1 Hypo-osmolality and hyponatremia; N17.9 Acute kidney failure, unspecified; Z94.4 Liver transplant status; E87.20 Acidosis, unspecified; T82.868A Thrombosis due to vascular prosthetic devices, implants and grafts, initial encounter; F31.9 Bipolar disorder, unspecified; I12.9 Hypertensive chronic kidney disease with stage 1 through stage 4 chronic kidney disease, or unspecified chronic kidney disease; N18.30 Chronic kidney disease, stage 3 unspecified; G20.C Parkinsonism, unspecified; Z66 Do not resuscitate; E03.9 Hypothyroidism, unspecified; Y83.8 Other surgical procedures as the cause of abnormal reaction of the patient, or of later complication, without mention of misadventure at the time of the procedure; E87.5 Hyperkalemia; J45.909 Unspecified asthma, uncomplicated; E83.39 Other disorders of phosphorus metabolism; E86.0 Dehydration; Z93.3 Colostomy status; Z87.891 Personal history of nicotine dependence; Z79.621 Long term (current) use of calcineurin inhibitor; Z79.890 Hormone replacement therapy; Z79.899 Other long term (current) drug therapy
CPT/HCPCS: 36415; 80048; 82803; 82947; 83735; 84100; 85027; 94640; 97162; J0613; J1644

== ENCOUNTER → 2024-11-18 13:06 | Outpatient (BNV) | payer MEDICARE, SELFPAY | PROVIDERS: Admitting Provider Internal Medicine; Visit Provider Student in an Organized Health Care Education/Training Program | DX: E87.5 Hyperkalemia (principal); N17.9 Acute kidney failure, unspecified; N18.9 Chronic kidney disease, unspecified | CPT/HCPCS: 99223; 99239; 99499 ==

== ENCOUNTER → 2024-11-18 | Outpatient (BNV) | payer MEDICARE, SELFPAY | PROVIDERS: Admitting Provider Internal Medicine; Visit Provider Nurse Practitioner Family | DX: Z94.0 Kidney transplant status (principal); N17.9 Acute kidney failure, unspecified; E87.5 Hyperkalemia; E87.20 Acidosis, unspecified; E87.1 Hypo-osmolality and hyponatremia | CPT/HCPCS: 99223 ==